=== PATIENT | female | born 1950 | race Caucasian/White ===

== ENCOUNTER 2016-05-26 16:49 | Observation (INO) | payer MEDICARE ==
[2016-05-26] MEDS ORDERED: ACETAMINOPHEN IV (For NPO) 1,000 MG in SALINE 100 100ML.BAG IVPB STA (17:43)
--- NOTE | 2016-05-26 17:43 | ED ---
General Adult HPI - General Chief complaint: Syncope Stated complaint: TRANSFER FROM [facility] Time Seen by Provider: 05/26/16 17:00 Source: patient, RN notes reviewed Mode of arrival: EMS Limitations: no limitations - History of Present Illness Initial comments: This is a 65-year-old female comes from [facility] after being evaluated there. Patient states she thinks she had a seizure last night and her nephew found this morning confused any prodromal [facility]. I received a phone call from [facility] physician states that she had a negative CAT scan of the head and neck negative laboratory workup as well as a negative troponin 2 and that the patient currently was neurologically intact and had no complaints. I spoke with the patient now she only complaint of a mild headache and she states her symptoms were very indicative of her previous seizures. Patient states she normally has a train coming and then has a seizure she states that did happen prior to this event. Patient denies any recent fever or chills. Patient states she has a mild headache. Patient denies any neck pain. Patient denies any numbness or weakness. Patient denies chest pain palpitations difficulty breathing or shortness of breath. Patient denies any recent cough. Patient denies abdominal pain patient denies nausea vomiting or diarrhea. - Related Data Home Medications Medication Instructions Recorded Confirmed Atenolol [Tenormin] 25 mg PO BID 11/13/13 11/13/13 Fluticasone/Salmeterol [Advair 1 puff BID 11/13/13 11/13/13 250-50 Diskus] Ipratropium/Albuterol Sulfate 1 puff INHALATION QID 11/13/13 11/13/13 [Combivent Respimat Inhaler] Ipratropium/Albuterol Sulfate 3 ml INHALATION QID 11/13/13 11/13/13 [Duoneb 0.5 mg-3 mg/3 ml Soln] Lisinopril [Zestril] 10 mg PO BID 11/13/13 11/13/13 Lovastatin 40 mg PO HS 11/13/13 11/13/13 Oxybutynin Chloride [Ditropan] 5 mg PO BID 11/13/13 11/13/13 Sertraline [Zoloft] 100 mg PO DAILY 11/13/13 11/13/13 Previous Rx's Medication Instructions Recorded Aspirin EC [Ecotrin Low Dose] 81 mg PO DAILY #1 tablet.dr 11/17/13 Isosorbide Mononitrate ER [Imdur] 30 mg PO DAILY #30 tab.er.24h 11/17/13 Levofloxacin [Levaquin] 750 mg PO DAILY #7 tab 11/17/13 Nicotine 14Mg/24Hr Patch [Habitrol] 1 patch TRANSDERM DAILY #1 patch 11/17/13 Nitroglycerin Sl Tabs [Nitrostat] 0.4 mg SL Q5M PRN #25 tab 11/17/13 predniSONE 10 mg PO DIRECTED #33 tab 11/17/13 Allergies Allergy/AdvReac Type Severity Reaction Status Date / Time No Known Allergies Allergy Verified 05/26/16 17:03 Review of Systems ROS Statement: Those systems with pertinent positive or pertinent negative responses have been documented in the HPI. ROS Other: All systems not noted in ROS Statement are negative. Past Medical History Past Medical History: Heart Failure, COPD, GERD/Reflux, Hyperlipidemia, Hypertension, Pulmonary Embolus (PE) Additional Past Medical History / Comment(s): Syncope and collapse requiring CPR intubation and mechanical ventilation approximately 4 days in [place] ( December 2010) History of Any Multi-Drug Resistant Organisms: None Reported Past Surgical History: Heart Catheterization, Hysterectomy, Orthopedic Surgery Additional Past Surgical History / Comment(s): bilat knee repair, pins and screws in left foot. Past Anesthesia/Blood Transfusion Reactions: No Reported Reaction Past Psychological History: Anxiety, Depression Smoking Status: Current every day smoker Past Alcohol Use History: None Reported Past Drug Use History: None Reported General Exam - General Exam Comments Initial Comments: GENERAL: Patient is well-developed and well-nourished. Patient is nontoxic and well- hydrated and is in mild distress. ENT: Neck is soft and supple. No significant lymphadenopathy is noted. Oropharynx is clear. Moist mucous membranes. Neck has full range of motion without eliciting any pain. EYES: The sclera were anicteric and conjunctiva were pink and moist. Extraocular movements were intact and pupils were equal round and reactive to light. Eyelids were unremarkable. PULMONARY: Unlabored respirations. Good breath sounds bilaterally. No audible rales rhonchi or wheezing was noted. CARDIOVASCULAR: There is a regular rate and rhythm without any murmurs gallops or rubs. ABDOMEN: Soft and nontender with normal bowel sounds. No palpable organomegaly was noted. There is no palpable pulsatile mass. SKIN: Skin is clear with no lesions or rashes and otherwise unremarkable. NEUROLOGIC: Patient is alert and oriented x3. Cranial nerves II through XII are grossly intact. Motor and sensory are also intact. Normal speech, volume and content. Symmetrical smile. MUSCULOSKELETAL: Normal extremities with adequate strength and full range of motion. No lower extremity swelling or edema. No calf tenderness. LYMPHATICS: No significant lymphadenopathy is noted PSYCHIATRIC: Normal psychiatric evaluation. Limitations: no limitations Course Vital Signs 05/26/16 16:59 Temperature 98.2 F Pulse Rate 104 H Respiratory 18 Rate Blood Pressure 186/76 O2 Sat by Pulse 97 Oximetry Disposition Clinical Impression: Seizure Disposition: ADMITTED IP TO THIS HOSP Referrals: Adrien Martinez MD [Primary Care Provider] - 1-2 days Time of Disposition: 17:46
[2016-05-26] MEDS ORDERED: SODIUM CHLORIDE 0.9% 1,000 ML IV ONE (17:47)
[2016-05-26] MEDS ORDERED: levETIRAcetam IV 1,000 MG in SALINE 1 100ML.BAG IVPB STA (19:50)
[2016-05-26 20:30] LABS: Basophils % (A) 1 %; CHCM 30.4; Eosinophils # (A) 0.1 k/uL (0-0.7); Eosinophils % (A) 2 %; HCT 32.6 % (34.0-46.0); HDW 2.73; HGB 9.8 gm/dL (11.4-16.0); Hypochromasia Moderate; Luc # (Auto) 0.04; Luc % (Auto) 1; Lymphocytes % (A) 16 %; MCH 24.9 pg (25.0-35.0); MCHC 30.2 g/dL (31.0-37.0); MCV 82.5 fL (80.0-100.0); Mean Platelet Volume 8.4; Monocytes # (A) 0.2 k/uL (0-1.0); Monocytes % (A) 4 %; Neutrophils # (A) 4.5 k/uL (1.3-7.7); Neutrophils % (A) 77 %; RBC 3.95 m/uL (3.80-5.40); WBC 5.8 k/uL (3.8-10.6); WBC (Perox) 6.18
[2016-05-26 20:42] LABS: ALT 31 U/L (9-52); AST 40 U/L (14-36); Alkaline Phosphatase 88 U/L (38-126); Anion Gap 9 mmol/L; Blood Urea Nitrogen 15 mg/dL (7-17); Calcium 8.5 mg/dL (8.4-10.2); Carbon Dioxide 31 mmol/L (22-30); Chloride 102 mmol/L (98-107); Glucose 123 mg/dL (74-99); Non-African American GFR(MDRD) >60 (>60 ml/min/1.73 sqM); Potassium 3.3 mmol/L (3.5-5.1); Sodium 142 mmol/L (137-145); Total Bilirubin 1.1 mg/dL (0.2-1.3); Total Protein 6.6 g/dL (6.3-8.2)
[2016-05-26] MEDS ORDERED: CYCLOBENZAPRINE 10 MG TAB PO PRN (21:32)
[2016-05-26] MEDS: IPRATROPIUM-ALBUTEROL 3 ML NEB INHALATION SCH (22:05)
[2016-05-26] MEDS: ACETAMINOPHEN TAB 325 MG TAB PO PRN (22:56)
[2016-05-26] MEDS: ATORVASTATIN 10 MG TAB PO SCH (22:58)
[2016-05-26] MEDS: ATENOLOL 25 MG TAB PO SCH (22:59)
[2016-05-26] MEDS: OXYBUTYNIN CHLORIDE 5 MG TAB PO SCH (22:59)
[2016-05-26] MEDS: LISINOPRIL 10 MG TAB PO SCH (22:59)
[2016-05-27] MEDS: IPRATROPIUM-ALBUTEROL 3 ML NEB INHALATION SCH ×4 (07:39→19:35)
[2016-05-27] MEDS: SYMBICORT 80-4.5 MCG INHALER INHALATION PRN ×2 (07:39→19:35)
[2016-05-27] MEDS: OXYBUTYNIN CHLORIDE 5 MG TAB PO SCH ×2 (08:59→20:12)
[2016-05-27] MEDS: levETIRAcetam IV 750 MG in SODIUM CHLORIDE 0.9% 100 ML IVPB SCH ×2 (08:59→20:11)
[2016-05-27] MEDS: LISINOPRIL 10 MG TAB PO SCH ×2 (09:00→20:12)
[2016-05-27] MEDS: CALCIUM CARB-VIT D 500MG-200UN 1 EACH TAB PO SCH (09:00)
[2016-05-27] MEDS: SERTRALINE 100 MG TAB PO SCH (09:00)
[2016-05-27] MEDS: ASPIRIN 81 MG CHEW PO SCH (09:00)
[2016-05-27] MEDS: ATENOLOL 25 MG TAB PO SCH ×2 (09:01→20:12)
[2016-05-27] MEDS: FUROSEMIDE 20 MG TAB PO SCH (12:59)
--- NOTE | 2016-05-27 15:07 | CT ---
EXAMINATION TYPE: CT brain norman carmona DATE OF EXAM: 05/27/2016 2:47 PM COMPARISON: NONE HISTORY: Fall yesterday. Posterior and left frontal injury. CT DLP: 1843.00 mGycm Automated exposure control for dose reduction was used. TECHNIQUE: CT scan of the head and cervical spine are performed without contrast. FINDINGS: There is mild cerebral cortical atrophy. There is no mass effect nor midline shift. There is no sign of intracranial hemorrhage. The calvarium is intact. The cervical vertebra have fairly normal alignment. There is degenerative disc space narrowing at C5- 6 C6-7 with spurring of the endplates. Skull base is intact. Prevertebral soft tissues appear normal. IMPRESSION: Mild atrophy. No acute intracranial abnormality. Spondylotic changes in the lower cervical spine. No fracture seen.
--- NOTE | 2016-05-27 15:09 | P.CONS ---
History of Present Illness - Reason for Consult Consult date: 05/27/16 Seizure - Chief Complaint Seizure - History of Present Illness Is a pleasant 65-year-old female being evaluated by the neurology service for seizure. She was transferred from [facility]. She reportedly had a negative CAT scan of the head and normal laboratory workup before being transferred to the [facility] emergency room. On admission she complained of only a mild headache. She gives a history of seizures that started many years ago. She had not had a seizure in about 4 years according to her. During that time she has taken no antiepileptic medication. Last thing she remembers is sitting in her living room and experiencing an aura that is familiar to her, that being the sound of a train. The next she remembers was being awoken by her nephew. She was lying on the floor and had experienced bladder and bowel incontinence. She still complains of a mild headache and occipital and cervical tenderness. She denies any recurrent aura or seizure activity since admission. She was given a loading dose of Keppra which she tolerated well. She cannot remember what antiepileptic medication she was on previously. Her daughter is at bedside and says that she is back to her baseline neurologically. Review of Systems All systems: negative Past Medical History Past Medical History: Heart Failure, COPD, GERD/Reflux, Hyperlipidemia, Hypertension, Osteoarthritis (OA), Pulmonary Embolus (PE), Seizure Disorder Additional Past Medical History / Comment(s): Syncope and collapse requiring CPR intubation and mechanical ventilation approximately 4 days in [place] ( December 2010), "ONLY HAVE 20% LUNG FUNCTION",HOME 02-4 LITERS N/C ATC,CATARACTS, OCC INCONT OF URINE,OSTEOPENIA, "ARRYTHMIA" History of Any Multi-Drug Resistant Organisms: None Reported Past Surgical History: Heart Catheterization, Hysterectomy, Orthopedic Surgery, Tubal Ligation Additional Past Surgical History / Comment(s): bilat knee replacement, pins and screws in left foot. bunionectomy, hammer toe sx, Past Anesthesia/Blood Transfusion Reactions: No Reported Reaction Additional Past Anesthesia/Blood Transfusion Reaction / Comm: blood transfusion- no reactions Past Psychological History: Anxiety, Depression Smoking Status: Former smoker Past Alcohol Use History: None Reported Additional Past Alcohol Use History / Comment(s): started smoking at age 16 smoked less than 1 ppd, 1quit -2015 Past Drug Use History: None Reported - Past Family History Father Family Medical History: Unable to Obtain Mother Family Medical History: Cancer Brother(s) Family Medical History: Cancer Medications and Allergies Home Medications Medication Instructions Recorded Confirmed Type Atenolol [Tenormin] 25 mg PO BID 11/13/13 05/26/16 History Fluticasone/Salmeterol [Advair 1 puff INHALATION RT-BID 11/13/13 05/26/16 History 250-50 Diskus] Ipratropium/Albuterol Sulfate 1 puff INHALATION RT-QID 11/13/13 05/26/16 History [Combivent Respimat Inhaler] Ipratropium/Albuterol Sulfate 3 ml INHALATION RT-QID 11/13/13 05/26/16 History [Duoneb 0.5 mg-3 mg/3 ml Soln] Lisinopril [Zestril] 10 mg PO BID 11/13/13 05/26/16 History Sertraline [Zoloft] 100 mg PO DAILY 11/13/13 05/26/16 History Calcium Carbonate/Vitamin D3 1 tab PO DAILY 05/26/16 05/26/16 History [Calcium 600-Vit D3 800 Tab] Cyclobenzaprine [Flexeril] 10 mg PO TID PRN 05/26/16 05/26/16 History Furosemide [Lasix] 20 mg PO DAILY 05/26/16 05/26/16 History Ibuprofen [Motrin] 800 mg PO TID PRN 05/26/16 05/26/16 History Lovastatin [Mevacor] 40 mg PO HS 05/26/16 05/26/16 History Nitroglycerin Sl Tabs [Nitrostat] 0.4 mg SUBLINGUAL Q5M PRN 05/26/16 05/26/16 History Oxybutynin Chloride [Ditropan] 5 mg PO BID 05/26/16 05/26/16 History Allergies Allergy/AdvReac Type Severity Reaction Status Date / Time codeine Allergy Rash/Hives Verified 05/26/16 18:23 Physical Exam Vitals: Vital Signs Temp Pulse Pulse Resp BP BP Pulse Ox 05/27/16 12:00 70 18 05/27/16 11:52 97.3 F L 70 18 141/66 96 05/27/16 11:42 72 05/27/16 11:36 72 05/27/16 08:00 98.2 F 68 16 107/48 98 05/27/16 07:49 76 05/27/16 07:45 68 05/27/16 04:00 97.9 F 72 18 133/61 97 05/27/16 00:00 61 18 05/26/16 23:26 103 H 18 169/74 95 05/26/16 22:14 101 H 05/26/16 22:05 112 H 05/26/16 18:57 98.1 F 107 H 18 170/76 05/26/16 18:21 97.4 F L 108 H 18 162/71 99 Intake and Output 05/26/16 05/27/16 05/27/16 22:59 06:59 14:59 Intake Total 200 Balance 200 Intake: Oral 200 Other: # Voids 2 1 Weight 77.9 kg - Constitutional General appearance: average body habitus, no acute distress - EENT Eyes: no abnormal pupil, EOMI, PERRLA, no ptosis ENT: hard of hearing - Neck Mild posterior cervical tenderness Neck: normal ROM, no rigidity - Respiratory Respiratory: negative: prolonged expiration, prolonged inspiration - Cardiovascular Rhythm: regular - Gastrointestinal General gastrointestinal: no distended, no tenderness - Neurologic Patient is alert awake and oriented 3. Speech and language are normal. Strength is 5 minus out of 5 in bilateral upper and lower extremities. There is no sensory deficit in the upper lower extremities. Cranial nerves II through XII are intact globally. No tremors or seizure-like activities are seen. There is some tenderness in the right occipital area. No crepitus is felt. - Psychiatric Psychiatric: appropriate affect Results CBC & Chem 7: 05/26/16 20:07 05/27/16 12:01 Labs: Abnormal Lab Results - Last 24 Hours (Table) 05/26/16 05/26/16 Range/Units 20:07 20:07 Hgb 9.8 L (11.4-16.0) gm/dL Hct 32.6 L (34.0-46.0) % MCH 24.9 L (25.0-35.0) pg MCHC 30.2 L (31.0-37.0) g/dL Potassium 3.3 L (3.5-5.1) mmol/L Carbon Dioxide 31 H (22-30) mmol/L Glucose 123 H (74-99) mg/dL AST 40 H (14-36) U/L Assessment and Plan (1) Head contusion Status: Acute (2) Cervical strain Status: Acute (3) Seizure Status: Chronic (4) Syncope and collapse Status: Acute (5) COPD (chronic obstructive pulmonary disease) Status: Acute (6) HTN (hypertension) Status: Acute Plan: As she does seem to recall an aura which is consistent with her previous seizure activity, she has not had a seizure in quite a while. I will update a CT of the brain as well as a CT of the cervical spine. I will order an EEG and a carotid Doppler. Continue IV Keppra for now we will likely be transitioning her to oral Keppra at 500 mg twice a day. Continue seizure precautions and neuro checks. We will continue to follow her progress. I reviewed the history and physical on the above patient. I have reviewed the above note, and agree.
--- NOTE | 2016-05-27 16:17 | US ---
EXAMINATION TYPE: US carotid duplex BILAT DATE OF EXAM: 05/27/2016 3:07 PM COMPARISON: NONE CLINICAL HISTORY: syncope. EXAM MEASUREMENTS: RIGHT: Peak Systolic Velocity (PSV) cm/sec ----- Right CCA: 86.7 ----- Right ICA: 91.2 ----- Right ECA: 12.9 ICA/CCA ratio: 1.1 RIGHT: End Diastole cm/sec ----- Right CCA: 27.4 ----- Right ICA: 26.4 ----- Right ECA: 11.4 LEFT: Peak Systolic Velocity (PSV) cm/sec ----- Left CCA: 69.8 ----- Left ICA: 108.1 ----- Left ECA: 175.3 ICA/CCA ratio: 1.5 LEFT: End Diastole cm/sec ----- Left CCA: 16.7 ----- Left ICA: 30.5 ----- Left ECA: 19.2 VERTEBRALS (direction of flow): Right Vertebral: Antegrade Left Vertebral: Antegrade TECHNOLOGIST IMPRESSION: Patient is short of breath and it is difficult to get images and waveforms without breathing motion. No significant stenosis ICA bilaterally. Moderate plaque Right bulb, ica and eca. Intimal thickening right CCA. Slightly elevated velocity right ECA. Moderate plaque at left CCA mid, bulb and proximal ICA. The ICA is quite tortuous. Elevated left E CA velocity. IMPRESSION: The images and measurements suggest 30-40% stenosis in both internal carotid arteries. T here is antegrade flow in the vertebral arteries. Criteria for Assigning % of Stenosis / Diameter reduction (Estimation based on the indirect measurements of the internal carotid artery velocities (ICA PSV). 1. Normal (no stenosis)=ICA PSV < 125 cm/s: ratio < 2.0: ICA EDV<40 cm/s. 2. Less than 50% stenosis=ICA PSV < 125 cm/s: ratio < 2.0: ICA EDV<40 cm/s. 3. 50 to 69% stenosis=ICA PSV of 125 to 230 cm/s: ration 2.0 ? 4.0: ICA EDV 40-100 cm/s. 4. Greater than 70% stenosis to near occlusion= ICA PSV > 230 cm/s: ratio > 4.0: ICA EDV > 100 cm/s. 5. Near occlusion= ICA PSV velocities may be low or undetectable: variable ratio and ICA EDV. 6. Total occlusion=unable to detect flow.
[2016-05-27] MEDS: ATORVASTATIN 10 MG TAB PO SCH (20:11)
[2016-05-28] MEDS: FUROSEMIDE 20 MG TAB PO SCH (08:28)
[2016-05-28] MEDS: OXYBUTYNIN CHLORIDE 5 MG TAB PO SCH ×2 (08:28→22:07)
[2016-05-28] MEDS: LISINOPRIL 10 MG TAB PO SCH ×2 (08:28→22:08)
[2016-05-28] MEDS: ATENOLOL 25 MG TAB PO SCH ×2 (08:29→22:08)
[2016-05-28] MEDS: ASPIRIN 81 MG CHEW PO SCH (08:29)
[2016-05-28] MEDS: SERTRALINE 100 MG TAB PO SCH (08:29)
[2016-05-28] MEDS: CALCIUM CARB-VIT D 500MG-200UN 1 EACH TAB PO SCH (08:29)
[2016-05-28] MEDS: levETIRAcetam IV 750 MG in SODIUM CHLORIDE 0.9% 100 ML IVPB SCH ×2 (08:49→22:08)
[2016-05-28] MEDS: IPRATROPIUM-ALBUTEROL 3 ML NEB INHALATION SCH ×4 (09:21→20:29)
[2016-05-28] MEDS: SYMBICORT 80-4.5 MCG INHALER INHALATION PRN ×2 (09:21→20:29)
--- NOTE | 2016-05-28 13:23 | P.PN ---
Subjective Principal diagnosis: Seizure This is 65-year-old female continuing be evaluated by the neurology service for seizure disorder. Recall that she had been seizure-free for quite some time and off any antiepileptic medication until this occurrence. She has been on IV Keppra since admission with no further seizure activity. Although not witnesses she did suffer a fall and does have persistent neck and head pain. CT of the brain and cervical spine were unremarkable. A carotid Doppler showed 30-40% stenosis bilaterally. At the time of my evaluation she is resting comfortably in her bed. Objective - Vital Signs Vital signs: Vital Signs Temp 98 F 05/28/16 11:17 Pulse 80 05/28/16 13:09 Resp 18 05/28/16 11:17 BP 119/47 05/28/16 11:17 Pulse Ox 94 L 05/28/16 11:17 Intake & Output 05/27/16 05/28/16 05/28/16 18:59 06:59 18:59 Intake Total 318 236 Balance 318 236 Intake: Oral 318 236 Other: Voiding Method Toilet # Voids 1 1 - Constitutional General appearance: Present: no acute distress. Absent: average body habitus - EENT Eyes: Present: EOMI, PERRLA. Absent: abnormal pupil, ptosis ENT: Present: hearing grossly normal - Neck Neck: Present: normal ROM. Absent: rigidity - Respiratory Respiratory: negative: prolonged expiration, prolonged inspiration - Gastrointestinal General gastrointestinal: Absent: distended, tenderness - Neurologic Neurologic Comment(s): Patient is alert awake and oriented 3. Speech-language are normal. There is no facial asymmetry. There is no lateralizing weakness. There is no sensory deficit. No tremors or seizure-like activities are seen. - Labs CBC & Chem 7: 05/26/16 20:07 05/27/16 12:01 Assessment and Plan (1) Head contusion Status: Acute (2) Cervical strain Status: Acute (3) Seizure Status: Chronic (4) Syncope and collapse Status: Acute (5) COPD (chronic obstructive pulmonary disease) Status: Acute (6) HTN (hypertension) Status: Acute Plan: She has had no further seizure activity since her admission. We will switch her IV Keppra to oral Keppra at 500 mg twice a day. Continue seizure precautions and neuro checks. Barring any unforeseen abnormalities on her EEG she is cleared from a neurological standpoint. I reviewed the history and physical on the above patient. I have reviewed the above note, and agree.
[2016-05-28] MEDS: ACETAMINOPHEN TAB 325 MG TAB PO PRN (13:25)
--- NOTE | 2016-05-28 13:29 | HP ---
DATE OF ADMISSION: 05/26/2016 CHIEF COMPLAINT: Seizures. HISTORY OF PRESENT ILLNESS: Ms. Dixon is a 65-year-old female with known history of severe chronic obstructive pulmonary disease, on home oxygen, history of congestive heart failure, GERD, hypertension, hyperlipidemia, previous history of seizures about 4 years ago and was initially brought to the hospital was initially presented to [facility] after having a seizure episode. Apparently, patient was sitting in her living room pain and explains an aura that is ( ) to her. That being the sound of a train. Next, ( ) was awakened by her nephew. She was lying on the floor and had bowel and bladder incontinence. Otherwise, the patient denied any headache or dizziness, lightheadedness. No chest pain or short of breath. The patient was transferred to [facility] from [facility]. Patient had a CAT scan of the head at [facility] and patient had a mild headache which is improved now. Otherwise, neurology has seen the patient. EEG was ordered. Currently denied any complaints. The patient denied any complaints of recent fever or chills. No nausea or vomiting, abdominal pain. No recent illnesses or sick contacts at home. REVIEW OF SYSTEMS: CONSTITUTIONAL: No fever. No chills. RESPIRATORY: No cough or sputum production. CARDIOVASCULAR: No chest pain or short of breath. ABDOMEN: No nausea or vomiting, abdominal pain. No diarrhea. No constipation. GENITOURINARY: Negative. ENDOCRINE: Negative. PSYCHIATRIC: Negative. All other 14 point review of systems negative except as above. Past medical history include: congestive heart failure unknown ejection fraction, COPD on home oxygen, GERD, hypertension, hyperlipidemia, osteoarthritis, pulmonary embolism, ( ) history and seizure disorder history, osteopenia. PAST SURGICAL HISTORY: Cardiac catheterization, hysterectomy, orthopedic surgery, tubal ligation, bilateral knee replacement, pins and screws in the left foot, bunionectomy, hammertoe surgery. PSYCHOSOCIAL HISTORY: Anxiety and depression. SOCIAL HISTORY: Patient is a former smoker, started smoking at age 16 and a smoker less than 1 pack per day; quit in ( ) 2015. FAMILY HISTORY: Father had ( ) mother had cancer. Brother had cancer. Home medications include: 1. Atenolol. 2. Advair. 3. Ipratropium. 4. Zestril. 5. Zoloft. 6. Calcium carbonate. 7. Flexeril. 8. Lasix. 9. Motrin. 10. Lovastatin. 11. Nystatin. 12. Nitroglycerin sublingual tabs. 13. Oxybutynin. ALLERGIES CODEINE. PHYSICAL EXAMINATION: A 65 -year-old female lying in bed comfortably, alert and oriented times three, appears to be in no apparent distress. VITALS: Blood pressure is 121/52, pulse is 78, respiratory rate 20, temperature afebrile, pulse ox 99% on 4 L nasal cannula. HEENT: Atraumatic, normocephalic. Neck is supple. No JVD. CVS: S1, S2 heard. No murmurs, no gallop, no rub. LUNGS: Bilateral air entry is present. No wheezing. No crackles. Increased breath sounds throughout. Nonlabored breathing. ABDOMEN: Soft, nontender. Bowel sounds present. REPAIR SERVICE DISPATCHER: Awake, alert and oriented times three. No focal deficits. Cranial nerves grossly intact. EXTREMITIES: No edema. Pulses palpable bilaterally. No clubbing. No cyanosis. PSYCHIATRIC: Cooperative. Nonsuicidal. SKIN: No rash or skin lesions. LABORATORY DATA: WBC 5.8, hemoglobin 9.8, platelets 185, sodium 142, potassium 3.3, chloride 102, bicarb is 31, BUN 15, creatinine 0.8, blood sugar is 123, AST 40, ALT is 31, alk phos 88, ( ) 3.5. CT cervical spine mild atrophy. No acute intracranial abnormality, spondylitis changes in the lower cervical spine. No fracture is seen. Carotid Doppler ( ) measurement suggests 30 to 40% stenosis in both internal carotid arteries. There is antegrade flow in the ( ) arteries. IMPRESSION: 1. Acute seizure activity with aura and loss of bowel or bladder incontinence. 2. Head contusion and cervical strain status post seizure activity. 3. Chronic obstructive pulmonary disease on home oxygen. 4. Hypertension. 5. Hyperlipidemia. 6. Gastroesophageal reflux disease. 7. History of congestive heart failure, unknown ejection fraction. 8. History of pulmonary embolism. 9. Degenerative joint disease. 10. Previous history of syncope and collapse requiring CPR and intubation in 2010. DISCUSSION AND PLAN: A 65 -year-old female admitted to the hospital with seizure activity, neurology has seen the patient and EEG was ordered. The patient will be continued on Keppra at this time. Neurology is following this patient. Further recommendations based on clinical course. CT head and CT cervical spine, showed no acute abnormality or fracture-dislocation and carotid ultrasound did not show any significant stenosis. Will continue current management. Continue seizure precautions. Continue home medications and further recommendations based on clinical course.
[2016-05-28] MEDS: ATORVASTATIN 10 MG TAB PO SCH (22:08)
[2016-05-29] MEDS: ACETAMINOPHEN TAB 325 MG TAB PO PRN (01:12)
[2016-05-29] MEDS: SYMBICORT 80-4.5 MCG INHALER INHALATION PRN (07:15)
[2016-05-29] MEDS: IPRATROPIUM-ALBUTEROL 3 ML NEB INHALATION SCH ×3 (07:15→15:54)
[2016-05-29 07:39] LABS: Appearance,Urine Cloudy (Clear); Bacteria,Urine Many /hpf; Bilirubin,Urine Negative (Negative); Glucose,Urine (UA) Negative (Negative); Ketones,Urine Negative (Negative); Leukocyte Esterase,Urine Large (Negative); Mucus,Urine Few /hpf; Nitrite,Urine Positive (Negative); Particle Count 31009; Protein,Urine Negative (Negative); RBC,Urine 1 /hpf (0-5); Specific Gravity,Urine 1.013 (1.001-1.035); Squamous Epithelial Cell,Urine 2 /hpf (0-4); UA Billing (MACRO vs. MICRO) MICRO; Urobilinogen,Urine <2.0 mg/dL (<2.0); WBC,Urine 17 /hpf (0-5)
[2016-05-29 08:10] VITALS: RESP 20
[2016-05-29] MEDS: ATENOLOL 25 MG TAB PO SCH (10:39)
[2016-05-29] MEDS: FUROSEMIDE 20 MG TAB PO SCH (10:39)
[2016-05-29] MEDS: CALCIUM CARB-VIT D 500MG-200UN 1 EACH TAB PO SCH (10:39)
[2016-05-29] MEDS: OXYBUTYNIN CHLORIDE 5 MG TAB PO SCH (10:40)
[2016-05-29] MEDS: SERTRALINE 100 MG TAB PO SCH (10:40)
[2016-05-29] MEDS: LISINOPRIL 10 MG TAB PO SCH (10:40)
[2016-05-29] MEDS: ASPIRIN 81 MG CHEW PO SCH (10:40)
[2016-05-29 11:54] VITALS: BP 121/61; TEMP 98
[2016-05-29] MEDS ORDERED: levETIRAcetam 500 MG TAB PO SCH (12:00)
[2016-05-29] MEDS: levETIRAcetam IV 750 MG in SODIUM CHLORIDE 0.9% 100 ML IVPB SCH (12:04)
[2016-05-29 15:58] VITALS: PULSE 78
--- NOTE | 2016-05-30 12:59 | PN ---
DATE OF SERVICE: 05/28/2016 INTERVAL HISTORY: Ms. Dixon is a 65-year-old female with severe chronic obstructive pulmonary disease and multiple other medical problems, was admitted to the hospital with a seizure activity with loss of bowel and bladder control. Patient had and EEG done, awaiting report at this time. Otherwise, patient was started on Keppra, Neurology is following this patient. Patient still feels weak and otherwise, denied any complaints of headaches, dizziness, lightheadedness. No fever. No chills. No acute overnight issues. Awaiting final neurology clearance. REVIEW OF SYSTEMS: CONSTITUTIONAL: No fever. No chills. RESPIRATORY: No cough or sputum production. CARDIOVASCULAR: No chest pain or short of breath. ABDOMEN: No nausea, abdominal pain, vomiting. GENITOURINARY: Negative. ENDOCRINE: Negative. PSYCHIATRY: Negative. SKIN: Negative. All other 14-point review of systems negative except as above. CURRENT MEDICATIONS: Reviewed. PHYSICAL EXAMINATION: The patient is a 65-year-old female, lying in the bed. Awake, alert, oriented x3. Patient in no apparent distress. VITALS: Blood pressure is 135/71, pulse is 74, respirations 20, temperature afebrile, pulse ox 98% on 4 L nasal cannula. HEENT: Atraumatic, normocephalic. Neck is supple. No JVD. CVS EXAM: S1, S2 heard. No murmurs or gallop. LUNGS: Bilateral air entry present. No wheezing. No crackle.. ABDOMEN: Soft, nontender. Bowel sounds present. TAPE EDITOR: Alert and oriented x3. No focal neurologic deficit. Cranial nerves are grossly intact. EXTREMITIES: No edema. Pulses palpable bilaterally. No clubbing or cyanosis. PSYCHIATRIC: Cooperative. LABORATORY DATA: Reviewed. IMPRESSION: 1. Acute seizure activity with aura and loss of bowel and bladder control, started on Keppra. 2. Head contusion and cervical strain status post seizure activity. 3. Chronic obstructive pulmonary disease on home oxygen. 4. Hypertension. 5. Hyperlipidemia. 6. Gastroesophageal reflux disease. 7. History of congestive heart failure with unknown ejection fraction. 8. History of pulmonary embolism. 9. Degenerative joint disease. 10. Previous history of syncope and collapse requiring CPR and intubation in 2010. DISCUSSION AND PLAN: A 65-year-old female admitted to the hospital with seizure activity. Neurology is following this patient, started on Keppra now. EEG report is pending. Otherwise, patient underwent CT head and cervical spine showed no acute abnormality or fracture or dislocation and carotid ultrasound did not reveal any significant stenosis. Will continue with the current management and follow closely. Further recommendations to follow depending on the patient.
--- NOTE | 2016-05-30 22:58 | DS ---
DATE OF ADMISSION: 05/26/2016 DATE OF DISCHARGE: 05/29/2016 DISCHARGE DIAGNOSES: 1. Acute seizure activity, started on back on Keppra dose. 2. Chronic seizures. 3. Head contusion and cervical strain from seizure activity. 4. Chronic obstructive pulmonary disease, on home oxygen. 5. Hypertension. 6. Hyperlipidemia. 7. Gastroesophageal reflux disease. 8. History of congestive heart failure; unknown ejection fraction. 9. History of pulmonary embolism. 10. Degenerative joint disease. 11. Previous history of syncope and collapse requiring cardiopulmonary resuscitation and intubation in 2010. HOSPITAL COURSE: Ms. Dixon is a 65-year-old female who was admitted to the hospital after seizure activity and a fall. Patient had an EEG done. She had a workup, including CT head, carotid duplex and EEG as well as CT of cervical spine that showed no acute fracture-dislocation. Patient was monitored in the hospital for any further seizure activity. No seizure activity noted in the hospital. Patient otherwise was continued on Keppra dose at home. Patient is clinically much improved now. UA was done for possible urinary tract infection. Otherwise, patient is asymptomatic; denied any dysuria. No fever. No chills. No leukocytosis. Urine culture will be monitored. Patient was advised to follow up with her primary care physician for final urine culture report. Otherwise, patient is clinically stable for discharge home. DISCHARGE PHYSICAL EXAMINATION: A 65-year-old female lying in bed comfortably. Awake, alert, oriented x3. No apparent distress. VITALS: Blood pressure is 121/61, pulse 82, respiration 20, temperature afebrile, pulse ox 99% on 4 L nasal cannula. LABORATORY DATA: Reviewed. Discharge physical examination done. Discharge medications include: 1. Atenolol 25 mg p.o. b.i.d. 2. Advair 1 puff b.i.d. 3. Ipratropium, albuterol inhalation q.i.d. p.r.n. for shortness of breath. 4. Zestril 10 mg p.o. b.i.d. 5. Zoloft 100 mg p.o. daily. 6. Aspirin 81 mg p.o. daily. 7. Calcium with vitamin D3 one tablet p.o. daily. 8. Flexeril 10 mg p.o. t.i.d. p.r.n. for spasms. 9. Lasix 20 mg p.o. daily. 10. Ibuprofen 800 mg p.o. t.i.d. p.r.n. for pain. 11. Lovastatin 40 mg at bedtime. 12. Nitroglycerin 0.4 mg sublingually q.5 minutes p.r.n. for chest pain. 13. Oxybutynin 5 mg p.o. b.i.d. 14. Keppra 500 mg p.o. q.12 hours. Patient advised to follow with primary care physician in 1 to 2 days, Dr. Adrien Martinez. Follow with primary care physician for the final urine culture reports. Follow up with Dr. Huitron in 4 weeks. Home with self-care. Activity as tolerated. Heart-healthy diet.
--- NOTE | 2016-06-03 14:31 | EEG ---
DATE OF SERVICE: 05/29/2016 INDICATIONS FOR EXAMINATION: Seizure AGE: 65Y DESCRIPTION OF PROCEDURE: This EEG was performed using a 21 channel digital electroencephalograph, following international 10-20 system. DESCRIPTION OF THE RECORDING: From the beginning of the tracing, with the patient's eyes closed, the background rhythm was mostly consisting of 9 Hz alpha frequency in the posterior occipital leads. No obvious asymmetry is seen. Occasional movement artifacts and lead artifacts were seen. Photic stimulation was performed with minimal driving response seen. No pathological waves were elicited. Hyperventilation was not performed. The patient does reach Stage II of sleep during the tracing and occasional sleep spindles are seen. No epileptiform discharges were seen throughout the tracing. INTERPRETATION: This asleep and awake EEG can be considered within normal limits. There was no asymmetry seen. No epileptiform discharges were noticed. The absence of epileptiform discharges does not rule out the diagnosis of epilepsy. Therefore, clinical correlation is recommended.
== END 2016-05-29 16:30 | disposition home or self-care (01) ==
LOC: EC 16:49 → 3OBS 17:47
PROVIDERS: ADMIT Hospitalist; ATTEND Hospitalist
DX: G40.909 Epilepsy, unspecified, not intractable, without status epilepticus (principal); S00.93XA Contusion of unspecified part of head, initial encounter; S16.1XXA Strain of muscle, fascia and tendon at neck level, initial encounter; E78.5 Hyperlipidemia, unspecified; F17.200 Nicotine dependence, unspecified, uncomplicated; F32.9 Major depressive disorder, single episode, unspecified; F41.9 Anxiety disorder, unspecified; I10 Essential (primary) hypertension; I50.9 Heart failure, unspecified; J44.9 Chronic obstructive pulmonary disease, unspecified; K21.9 Gastro-esophageal reflux disease without esophagitis; M19.90 Unspecified osteoarthritis, unspecified site; M85.80 Other specified disorders of bone density and structure, unspecified site; Z79.82 Long term (current) use of aspirin; R32 Unspecified urinary incontinence; Z86.711 Personal history of pulmonary embolism; Z88.5 Allergy status to narcotic agent; Z96.653 Presence of artificial knee joint, bilateral; Z99.81 Dependence on supplemental oxygen; Z79.899 Other long term (current) drug therapy; Z79.52 Long term (current) use of systemic steroids; W19.XXXA Unspecified fall, initial encounter; Y92.008 Other place in unspecified non-institutional (private) residence as the place of occurrence of the external cause
CPT/HCPCS: 99285; 94640 ×7; 94760 ×2; 95819; 80053; 84132; 84484; 85025; 85730; 81001; 87086; 87077; 87186; 93880; 72125; 70450; G0378 ×4; J1953 ×3; J0131; 96361; 96365; 96375; 96376

== ENCOUNTER → 2016-08-07 | Outpatient (CLI) | payer MEDICARE ==
[2016-08-07 16:49] LABS: Blood Urea Nitrogen 25 mg/dL (7-17); Non-African American GFR(MDRD) 55 (>60 ml/min/1.73 sqM)
--- NOTE | 2016-08-07 17:47 | MR ---
EXAMINATION TYPE: MR brain wo/w con DATE OF EXAM: 08/07/2016 5:31 PM COMPARISON: CT brain May 27, 2016 HISTORY: Seizure and memory loss per order. Additional symptoms of bilateral hearing loss per patient . TECHNIQUE: Multiplanar, multisequence images of the brain and brainstem is performed without and with IV contras t, utilizing 15 mL intravenous MultiHance . FINDINGS: Diffusion weighted images demonstrate no evidence of a recent infarct or other diffusion ab normality. There is no worrisome extra-axial fluid collection. There is ventricular and sulcal promi nence consistent with mild diffuse age-related cerebral atrophy. There are focal and confluent areas of T2 hyperintensity seen in the periventricular white matter. Lesions are nonspecific in appearance and distribution are most likely on basis of product of chronic small vessel ischemic change in patie nt this age. Exam is slightly suboptimal as trauma protocol was not performed. T2 coronal weighted im ages show hippocampal gyri to appear symmetric and felt within normal limits. Midline structures demonstrate normal morphology. The craniocervical junction appears within normal limits. Post contrast images demonstrate no abnormal enhancement. The dural venous sinuses appear pa tent. The visualized sinuses are clear and the globes are intact. IMPRESSION: There is mild diffuse age-related cerebral atrophy and fairly moderate periventricular ch ronic small vessel ischemic change noted.
== END | disposition home or self-care (01) ==
LOC: RADMRIMAIN 16:24
PROVIDERS: ATTEND Psychiatry & Neurology Pain Medicine
DX: G40.909 Epilepsy, unspecified, not intractable, without status epilepticus (principal); R41.3 Other amnesia; Z88.5 Allergy status to narcotic agent
CPT/HCPCS: 82565; 84520; 70553; A9577

== ENCOUNTER → 2016-08-18 | Outpatient (CLI) | payer MEDICARE ==
[2016-08-18 10:20] LABS: CH 25.4; CHCM 30.9; HDW 2.84; HGB 9.3 gm/dL (11.4-16.0); Hypochromasia Moderate; MCH 25.5 pg (25.0-35.0); MCV 82.1 fL (80.0-100.0); Mean Platelet Volume 7.4; RBC 3.65 m/uL (3.80-5.40); RDW 14.1 % (11.5-15.5); WBC 4.4 k/uL (3.8-10.6)
[2016-08-18 11:31] LABS: ALT 21 U/L (9-52); AST 23 U/L (14-36); Alkaline Phosphatase 102 U/L (38-126); Anion Gap 9 mmol/L; Blood Urea Nitrogen 19 mg/dL (7-17); Calcium 9.2 mg/dL (8.4-10.2); Carbon Dioxide 33 mmol/L (22-30); Chloride 101 mmol/L (98-107); Glucose 91 mg/dL (74-99); Iron 60 ug/dL (37-170); Non-African American GFR(MDRD) >60 (>60 ml/min/1.73 sqM); Potassium 4.3 mmol/L (3.5-5.1); Sodium 143 mmol/L (137-145); Total Bilirubin 0.7 mg/dL (0.2-1.3); Total Protein 7.5 g/dL (6.3-8.2)
[2016-08-18 11:45] LABS: % Iron Saturation 23.6 % (20-50); Total Iron Binding Capacity 254 ug/dL (265-497)
[2016-08-18 12:27] LABS: Vitamin B12 550 pg/mL
--- NOTE | 2016-08-18 15:13 | NM ---
EXAMINATION TYPE: NM DatScan Brain SPECT DATE OF EXAM: 08/18/2016 3:01 PM COMPARISON: MRI brain August 07, 2016. HISTORY: Memory loss per order. TECHNIQUE: 10 drops of Lugol's solution was administered 1 hour prior to injection as a thyroid bloc karrie agent. After the administration of 4.5 mCi I-123 Ioflupane DaTscan. Images obtained [address] injection. SPECT images of the brain were acquired with axial and coronal reconstructions. FINDINGS: There is some balanced striatal loss to the caudate and putaminal nuclei in the striata. This appea naseem is consistent with the loss of the pre-synaptic dopaminergic terminals. Some asymmetry tilting on images is noted. IMPRESSION: This abnormal appearance is supportive of a clinical diagnosis of DLB, idiopathic PD, Parkinson?s dementia complex, or PS. Clinical correlation advised.
[2016-08-19 14:17] LABS: Levetiracetam (Keppra) 28.2 ug/mL (3.0-60.0)
== END | disposition home or self-care (01) ==
LOC: RADNMMAIN 09:38
PROVIDERS: ATTEND Psychiatry & Neurology Neurology
DX: R41.3 Other amnesia (principal); E55.9 Vitamin D deficiency, unspecified; R53.83 Other fatigue; R41.0 Disorientation, unspecified
CPT/HCPCS: 84207; 84439; 84481; 80053; 80177; 82607; 82728; 83540; 83550; 84443; 85027; 84466; 82306; 78607; 36415; A9584

== ENCOUNTER 2021-03-19 20:55 | Inpatient (IN) | payer MEDICARE, OTHER ==
[2021-03-19] MEDS ORDERED: ORPHENADRINE 30 MG/ML 2 ML VIAL IM STA (21:18)
[2021-03-19] MEDS ORDERED: MORPHINE SULFATE 2 MG/ML SYRINGE IM ONE (21:18)
[2021-03-19] MEDS ORDERED: SODIUM CHLORIDE 0.9% 1,000 ML IV ONE (21:33)
[2021-03-19] MEDS: HYDROmorphone 1 MG/ML 1 ML SYRINGE IVP STA ×2 (21:38→21:44)
--- NOTE | 2021-03-19 22:06 | XR ---
EXAMINATION TYPE: XR lumbar spine 2 or 3V DATE OF EXAM: 03/19/2021 COMPARISON: NONE HISTORY: Pain. Fall. TECHNIQUE: 3 views FINDINGS: There is slight lumbar dextroscoliosis. There is a first-degree L4-5 spondylolisthesis with disc space narrowing. There is slight depression of the superior endplate of L5 vertebra 10%. Fractu re is probably old. Sacroiliac joints are intact. IMPRESSION: There is degenerative first-degree L4-5 spondylolisthesis. Old mild compression fracture of L5. No definite acute fracture seen.
--- NOTE | 2021-03-19 22:08 | XR ---
EXAMINATION TYPE: XR Hip LT and AP Pelvis DATE OF EXAM: 03/19/2021 COMPARISON: NONE HISTORY: Fall. Pain 05/26/2016 TECHNIQUE: 3 views FINDINGS: There is impacted subcapital fracture left femur. The pelvic ring is intact. Sacroiliac jenny nts are intact. Acetabula appear intact. Sacroiliac joints appear normal. IMPRESSION: Acute impacted subcapital fracture left femur. There is approximate 2 cm of impaction.
[2021-03-19 22:21] LABS: Basophils % (A) 0 %; Eosinophils % (A) 0 %; HCT 35.1 % (34.0-46.0); HGB 11.2 gm/dL (11.4-16.0); Lymphocytes # (A) 0.7 k/uL (1.0-4.8); Lymphocytes % (A) 8 %; MCH 28.1 pg (25.0-35.0); MCHC 31.8 g/dL (31.0-37.0); MCV 88.5 fL (80.0-100.0); Monocytes # (A) 0.3 k/uL (0-1.0); Monocytes % (A) 4 %; Neutrophils # (A) 7.8 k/uL (1.3-7.7); Neutrophils % (A) 87 %; Platelet Count 163 k/uL (150-450); RBC 3.97 m/uL (3.80-5.40); RDW 13.6 % (11.5-15.5)
[2021-03-19] MEDS ORDERED: NALOXONE 0.4 MG/ML 1 ML VIAL IV PRN (22:33)
[2021-03-19 22:35] LABS: INR 0.9 (<1.2); Partial Thromboplastin Time 20.8 sec (22.0-30.0); Prothrombin Time 9.5 sec (9.0-12.0)
--- NOTE | 2021-03-19 22:39 | ED ---
Fall HPI - General Chief Complaint: Fall Stated Complaint: Fall Time Seen by Provider: 03/19/21 21:11 Source: patient, EMS, RN notes reviewed Mode of arrival: EMS - History of Present Illness Initial Comments: Patient is a 70-year-old female that presents emergency department status post fall down several stairs. She notes that she comes in complaining of left hip pain. She did appear to be in moderate amounts distress. She denied any other issues or complaints. She was otherwise well-appearing. She denied any numbness tingling down her left leg. She denied any chest pain first breath headache nausea vomiting diarrhea constipation fever fatigue chills. - Related Data Home Medications Medication Instructions Recorded Confirmed Lisinopril [Zestril] 10 mg PO BID 11/13/13 03/19/21 Sertraline [Zoloft] 100 mg PO DAILY 11/13/13 03/19/21 Oxybutynin Chloride [Ditropan] 5 mg PO BID 05/26/16 03/19/21 Albuterol Inhaler [Ventolin Hfa 2 puff INHALATION RT-Q4H PRN 03/19/21 03/19/21 Inhaler] Celecoxib [CeleBREX] 100 mg PO DAILY 03/19/21 03/19/21 LORazepam [Ativan] 0.5 mg PO Q6H PRN 03/19/21 03/19/21 Lovastatin [Mevacor] 40 mg PO DAILY 03/19/21 03/19/21 Metoprolol Tartrate [Lopressor] 25 mg PO BID 03/19/21 03/19/21 Morphine Sulfate [Morphine Sulfate 5 mg PO Q4H PRN 03/19/21 03/19/21 Oral Soln Conc (20 MG/ML)] predniSONE 5 mg PO DAILY 03/19/21 03/19/21 Previous Rx's Medication Instructions Recorded Aspirin EC [Ecotrin Low Dose] 81 mg PO DAILY #1 tablet. 11/17/13 Allergies Allergy/AdvReac Type Severity Reaction Status Date / Time codeine Allergy Rash/Hives Verified 03/19/21 22:18 Review of Systems ROS Statement: Those systems with pertinent positive or pertinent negative responses have been documented in the HPI. ROS Other: All systems not noted in ROS Statement are negative. Past Medical History Past Medical History: Heart Failure, COPD, GERD/Reflux, Hyperlipidemia, Hypertension, Osteoarthritis (OA), Pulmonary Embolus (PE), Seizure Disorder Additional Past Medical History / Comment(s): Syncope and collapse requiring CPR intubation and mechanical ventilation approximately 4 days in [place] (December 2010), "ONLY HAVE 20% LUNG FUNCTION",HOME 02-4 LITERS N/C ATC,CATARACTS, OCC INCONT OF URINE,OSTEOPENIA, "ARRYTHMIA" History of Any Multi-Drug Resistant Organisms: None Reported Past Surgical History: Heart Catheterization, Hysterectomy, Orthopedic Surgery, Tubal Ligation Additional Past Surgical History / Comment(s): bilat knee replacement, pins and screws in left foot. bunionectomy, hammer toe sx, Past Anesthesia/Blood Transfusion Reactions: No Reported Reaction Additional Past Anesthesia/Blood Transfusion Reaction / Comment(s): blood transfusion-no reactions Past Psychological History: Anxiety, Depression Smoking Status: Current every day smoker Past Alcohol Use History: None Reported Past Drug Use History: None Reported - Past Family History Father Family Medical History: Unable to Obtain Mother Family Medical History: Cancer Brother(s) Family Medical History: Cancer General Exam Limitations: altered mental status, physical limitation General appearance: alert, in no apparent distress Head exam: Present: atraumatic, normocephalic, normal inspection Eye exam: Present: normal appearance, PERRL, EOMI. Absent: scleral icterus, conjunctival injection, periorbital swelling ENT exam: Present: normal exam, mucous membranes moist Neck exam: Present: normal inspection Respiratory exam: Present: normal lung sounds bilaterally. Absent: respiratory distress, wheezes, rales, rhonchi, stridor Cardiovascular Exam: Present: regular rate, normal rhythm, normal heart sounds. Absent: systolic murmur, diastolic murmur, rubs, gallop, clicks Extremities exam: Present: normal inspection, full ROM, normal capillary refill, other (Left hip tenderness, no obvious shortening or internal/external rotation.). Absent: tenderness, pedal edema, joint swelling, calf tenderness Neurological exam: Present: alert, oriented X3 Psychiatric exam: Present: normal affect, normal mood Skin exam: Present: warm, dry, intact, normal color. Absent: rash Course Vital Signs 03/19/21 03/19/21 03/19/21 21:01 21:44 23:00 Temperature 98.3 F Pulse Rate 98 94 91 Respiratory 18 18 18 Rate Blood Pressure 133/84 161/81 159/60 O2 Sat by Pulse 94 L 93 L 98 Oximetry 03/20/21 00:58 Temperature Pulse Rate 83 Respiratory 18 Rate Blood Pressure 136/75 O2 Sat by Pulse 97 Oximetry Medical Decision Making - Medical Decision Making 70-year-old female fell down several stairs complete left hip pain. X-ray of the left hip and pelvis, basic labs, EKG, chest x-ray ordered. X-ray of the hip shows a left subcapital femur fracture with 2 cm impaction. X-ray lumbar spine negative for any acute fracture. Dr. Judith Cabrera was consulted and will set the admit. medicine will be on consult Case discussed with Dr. Joe - Lab Data Result diagrams: 03/19/21 21:42 03/19/21 21:42 Lab Results 03/19/21 03/19/21 03/19/21 Range/Units 21:42 21:42 21:42 WBC 9.0 (3.8-10.6) k/uL RBC 3.97 (3.80-5.40) m/uL Hgb 11.2 L (11.4-16.0) gm/dL Hct 35.1 (34.0-46.0) % MCV 88.5 (80.0-100.0) fL MCH 28.1 (25.0-35.0) pg MCHC 31.8 (31.0-37.0) g/dL RDW 13.6 (11.5-15.5) % Plt Count 163 (150-450) k/uL MPV 9.0 Neutrophils % 87 % Lymphocytes % 8 % Monocytes % 4 % Eosinophils % 0 % Basophils % 0 % Neutrophils # 7.8 H (1.3-7.7) k/uL Lymphocytes # 0.7 L (1.0-4.8) k/uL Monocytes # 0.3 (0-1.0) k/uL Eosinophils # 0.0 (0-0.7) k/uL Basophils # 0.0 (0-0.2) k/uL PT 9.5 (9.0-12.0) sec INR 0.9 (<1.2) APTT 20.8 L (22.0-30.0) sec Sodium 136 L (137-145) mmol/L Potassium 4.0 (3.5-5.1) mmol/L Chloride 92 L (98-107) mmol/L Carbon Dioxide 37 H (22-30) mmol/L Anion Gap 7 mmol/L BUN 22 H (7-17) mg/dL Creatinine 0.61 (0.52-1.04) mg/dL Est GFR (CKD-EPI)AfAm >90 (>60 ml/min/1.73 sqM) Est GFR (CKD-EPI)NonAf >90 (>60 ml/min/1.73 sqM) Glucose 131 H (74-99) mg/dL Calcium 9.3 (8.4-10.2) mg/dL Total Bilirubin 1.1 (0.2-1.3) mg/dL AST 39 H (14-36) U/L ALT 22 (4-34) U/L Alkaline Phosphatase 71 (38-126) U/L Total Protein 7.5 (6.3-8.2) g/dL Albumin 4.1 (3.5-5.0) g/dL Urine Color Urine Appearance (Clear) Urine pH (5.0-8.0) Ur Specific [place] (1.001-1.035) Urine Protein (Negative) Urine Glucose (UA) (Negative) Urine Ketones (Negative) Urine Blood (Negative) Urine Nitrite (Negative) Urine Bilirubin (Negative) Urine Urobilinogen (<2.0) mg/dL Ur Leukocyte Esterase (Negative) Urine RBC (0-5) /hpf Urine WBC (0-5) /hpf Ur Squamous Epith Cells (0-4) /hpf Amorphous Sediment (None) /hpf Urine Bacteria (None) /hpf Hyaline Casts (0-2) /lpf Urine Mucus (None) /hpf Coronavirus (PCR) (Not Detectd) 03/19/21 03/19/21 Range/Units 23:29 23:30 WBC (3.8-10.6) k/uL RBC (3.80-5.40) m/uL Hgb (11.4-16.0) gm/dL Hct (34.0-46.0) % MCV (80.0-100.0) fL MCH (25.0-35.0) pg MCHC (31.0-37.0) g/dL RDW (11.5-15.5) % Plt Count (150-450) k/uL MPV Neutrophils % % Lymphocytes % % Monocytes % % Eosinophils % % Basophils % % Neutrophils # (1.3-7.7) k/uL Lymphocytes # (1.0-4.8) k/uL Monocytes # (0-1.0) k/uL Eosinophils # (0-0.7) k/uL Basophils # (0-0.2) k/uL PT (9.0-12.0) sec INR (<1.2) APTT (22.0-30.0) sec Sodium (137-145) mmol/L Potassium (3.5-5.1) mmol/L Chloride (98-107) mmol/L Carbon Dioxide (22-30) mmol/L Anion Gap mmol/L BUN (7-17) mg/dL Creatinine (0.52-1.04) mg/dL Est GFR (CKD-EPI)AfAm (>60 ml/min/1.73 sqM) Est GFR (CKD-EPI)NonAf (>60 ml/min/1.73 sqM) Glucose (74-99) mg/dL Calcium (8.4-10.2) mg/dL Total Bilirubin (0.2-1.3) mg/dL AST (14-36) U/L ALT (4-34) U/L Alkaline Phosphatase (38-126) U/L Total Protein (6.3-8.2) g/dL Albumin (3.5-5.0) g/dL Urine Color Light Yellow Urine Appearance Clear (Clear) Urine pH 7.0 (5.0-8.0) Ur Specific [place] 1.011 (1.001-1.035) Urine Protein Negative (Negative) Urine Glucose (UA) Negative (Negative) Urine Ketones Negative (Negative) Urine Blood Small H (Negative) Urine Nitrite Positive H (Negative) Urine Bilirubin Negative (Negative) Urine Urobilinogen <2.0 (<2.0) mg/dL Ur Leukocyte Esterase Negative (Negative) Urine RBC 5 (0-5) /hpf Urine WBC 3 (0-5) /hpf Ur Squamous Epith Cells 2 (0-4) /hpf Amorphous Sediment Moderate H (None) /hpf Urine Bacteria Occasional H (None) /hpf Hyaline Casts 3 H (0-2) /lpf Urine Mucus Rare H (None) /hpf Coronavirus (PCR) Not Detected (Not Detectd) - EKG Data -: EKG Interpreted by Me EKG shows normal: sinus rhythm Rate: normal EKG Comments: Ventricular rate 97 bpm, NH interval 120 ms, QRS duration 88 ms, QTC 447 ms, PRT axes 76/52/70. Sinus rhythm, septal infarct age undetermined, abnormal ECG. - Radiology Data Radiology results: report reviewed, image reviewed X-ray left hip: Acute impacted subcapital fracture left femur approximate 2 cm of impaction. X-ray lumbar spine: There is degenerative first to be L4-L5 spondylolisthesis. Old mild compression fracture of L5 no definite acute fracture. Disposition Clinical Impression: Subcapital fracture of left femur, Fall Disposition: ADMITTED IP TO THIS HOSP Condition: Stable Is patient prescribed a controlled substance at d/c from ED?: No Time of Disposition: 22:52
--- NOTE | 2021-03-19 22:40 | XR ---
EXAMINATION TYPE: XR chest 1V portable DATE OF EXAM: 03/19/2021 COMPARISON: 05/26/2016 HISTORY: Preop TECHNIQUE: Leeanne view FINDINGS: There is some mild coarse interstitial density at the lung apices. Heart size is normal. Th ere is no heart failure. There are no hilar masses. Thoracic aorta is atheromatous. Bony thorax is in tact. IMPRESSION: Mild fibrotic changes at the lung apices. Normal heart. No definite acute lung disease.
[2021-03-19] MEDS: SODIUM CHLORIDE 0.9% 1,000 ML IV SCH (22:59)
[2021-03-19 23:08] LABS: ALT 22 U/L (4-34); AST 39 U/L (14-36); African American GFR (CKD) >90 (>60 ml/min/1.73 sqM); Albumin 4.1 g/dL (3.5-5.0); Alkaline Phosphatase 71 U/L (38-126); Anion Gap 7 mmol/L; Blood Urea Nitrogen 22 mg/dL (7-17); Calcium 9.3 mg/dL (8.4-10.2); Carbon Dioxide 37 mmol/L (22-30); Chloride 92 mmol/L (98-107); Glucose 131 mg/dL (74-99); Non-African American GFR(CKD) >90 (>60 ml/min/1.73 sqM); Sodium 136 mmol/L (137-145); Total Bilirubin 1.1 mg/dL (0.2-1.3); Total Protein 7.5 g/dL (6.3-8.2)
[2021-03-20] LABS: Amorphous Sediment,Urine Moderate /hpf; Appearance,Urine Clear (Clear); Bacteria,Urine Occasional /hpf; Bilirubin,Urine Negative (Negative); Blood,Urine Small (Negative); Color,Urine Light Yellow; Glucose,Urine (UA) Negative (Negative); Hyaline Casts,Urine 3 /lpf (0-2); Ketones,Urine Negative (Negative); Leukocyte Esterase,Urine Negative (Negative); Mucus,Urine Rare /hpf; Nitrite,Urine Positive (Negative); Protein,Urine Negative (Negative); RBC,Urine 5 /hpf (0-5); Specific Gravity,Urine 1.011 (1.001-1.035); Squamous Epithelial Cell,Urine 2 /hpf (0-4); Urobilinogen,Urine <2.0 mg/dL (<2.0); WBC,Urine 3 /hpf (0-5)
[2021-03-20] MEDS: HYDROmorphone 1 MG/ML 1 ML SYRINGE IVP PRN ×5 (02:19→21:27)
[2021-03-20] MEDS ORDERED: ALBUTEROL NEBULIZED 2.5 MG/3 ML INHALATION PRN (05:04)
--- NOTE | 2021-03-20 05:15 | P.CONS ---
History of Present Illness - Reason for Consult Consult date: 03/19/21 medical clearance Requesting physician: Judith Cabrera - Chief Complaint left hip pain - History of Present Illness 70-year-old female nonverbal with complex past medical history. Patient currently on hospice due to advanced COPD. However patient sustained a fall today over several steps of stairs resulting and pain over her left hip for which family brought to the hospital for evaluation. No other details are available for me at this time patient is nonverbal and unable to provide any meaningful history family is not available at this time for interview Workup in the ED showed anemia with hemoglobin 11.2, Covid testing negative, urine analysis was positive for possible infection however this could not be verified with the patient as she is unable to provide any meaningful history, EKG showed normal sinus rhythm, chest x-ray unremarkable, hip showed acute impac rand subcapital fracture of left femur with 2 cm impaction Review of Systems ROS unobtainable: due to mental status Past Medical History Past Medical History: Heart Failure, COPD, GERD/Reflux, Hyperlipidemia, Hypertension, Osteoarthritis (OA), Pulmonary Embolus (PE), Seizure Disorder Additional Past Medical History / Comment(s): Syncope and collapse requiring CPR intubation and mechanical ventilation approximately 4 days in [place] (December 2010), "ONLY HAVE 20% LUNG FUNCTION",HOME 02-4 LITERS N/C ATC,CATARACTS, OCC INCONT OF URINE,OSTEOPENIA, "ARRYTHMIA" History of Any Multi-Drug Resistant Organisms: None Reported Past Surgical History: Heart Catheterization, Hysterectomy, Orthopedic Surgery, Tubal Ligation Additional Past Surgical History / Comment(s): bilat knee replacement, pins and screws in left foot. bunionectomy, hammer toe sx, Past Anesthesia/Blood Transfusion Reactions: No Reported Reaction Additional Past Anesthesia/Blood Transfusion Reaction / Comm: blood transfusion- no reactions Past Psychological History: Anxiety, Depression Smoking Status: Current every day smoker Past Alcohol Use History: None Reported Past Drug Use History: None Reported - Past Family History Father Family Medical History: Unable to Obtain Mother Family Medical History: Cancer Brother(s) Family Medical History: Cancer Medications and Allergies Home Medications Medication Instructions Recorded Confirmed Type Lisinopril [Zestril] 10 mg PO BID 11/13/13 03/19/21 History Sertraline [Zoloft] 100 mg PO DAILY 11/13/13 03/19/21 History Aspirin EC [Ecotrin Low Dose] 81 mg PO DAILY #1 tablet. 11/17/13 03/19/21 Rx Oxybutynin Chloride [Ditropan] 5 mg PO BID 05/26/16 03/19/21 History Albuterol Inhaler [Ventolin Hfa 2 puff INHALATION RT-Q4H PRN 03/19/21 03/19/21 History Inhaler] Celecoxib [CeleBREX] 100 mg PO DAILY 03/19/21 03/19/21 History LORazepam [Ativan] 0.5 mg PO Q6H PRN 03/19/21 03/19/21 History Lovastatin [Mevacor] 40 mg PO DAILY 03/19/21 03/19/21 History Metoprolol Tartrate [Lopressor] 25 mg PO BID 03/19/21 03/19/21 History Morphine Sulfate [Morphine Sulfate 5 mg PO Q4H PRN 03/19/21 03/19/21 History Oral Soln Conc (20 MG/ML)] predniSONE 5 mg PO DAILY 03/19/21 03/19/21 History Allergies Allergy/AdvReac Type Severity Reaction Status Date / Time codeine Allergy Rash/Hives Verified 03/19/21 22:18 Physical Exam Vitals: Vital Signs Temp Pulse Resp BP Pulse Ox 03/19/21 21:44 94 18 161/81 93 L 03/19/21 21:01 98.3 F 98 18 133/84 94 L Intake and Output 03/19/21 03/19/21 03/19/21 06:59 14:59 22:59 Other: Weight 65.771 kg Constitutional: Opens eyes to verbal stimulation otherwise patient is nonverbal patient does not follow commands however she is moving spontaneously while laying down in bed Eyes: Anicteric sclerae, moist conjunctiva, Pupils equal round reactive to light ENMT: NC Oropharynx clear, no erythema, or exudates Neck: Supple no masses, or JVD No carotid bruits No thyromegaly Lungs: Clear to auscultation Clear to percussion Normal respiratory effort, no accessory muscle use Cardiovascular: Heart regular in rate and rhythm, No murmurs, gallops, or rubs No peripheral edema Abdominal: Soft Nontender, no guarding, rebound or rigidity Abdomen moving with respiration Normoactive bowel sounds No hepatomegaly, No splenomegaly No palpable mass No abdominal wall hernia noted Skin: Slight bruising over the right hip, otherwise Normal temperature, tone, texture, turgor Extremities: No digital cyanosis No clubbing Pedal pulses intact and symmetrical Radial pulses intact and symmetrical No calf tenderness Psychiatric: Opens eyes to verbal stimulation patient otherwise nonverbal Neuro unable to perform proper neuro exam patient cannot cooperate or follow commands Lymphatics: no palpable cervical or supraclavicular , or inguinal lymph nodes Results CBC & Chem 7: 03/19/21 21:42 03/19/21 21:42 Labs: Abnormal Lab Results - Last 24 Hours (Table) 03/19/21 03/19/21 Range/Units 21:42 21:42 Hgb 11.2 L (11.4-16.0) gm/dL Neutrophils # 7.8 H (1.3-7.7) k/uL Lymphocytes # 0.7 L (1.0-4.8) k/uL APTT 20.8 L (22.0-30.0) sec Assessment and Plan Assessment: Acute impacted subcapital fracture of the left femur with 2 cm impaction secondary to accidental fall Await orthopedic evaluation for further recommendations regarding management Patient not a good candidate for surgical intervention due to advanced disease and multiple comorbidities which carries a very high risk of perioperative cardiovascular and pulmonary complication, await further orthopedic evaluation regarding options of treatment, also await family feedback regarding goals of therapy as patient has been under hospice care up until today. Due to advanced pulmonary disease Patient charts indicates vague history of seizure and CHF unable to verify patie nt history at this time Suspected component of urinary tract infection again patient unable to provide any meaningful history of patient spikes a fever with consider starting patient on antibiotics Meeting with family to set goals of therapy Await orthopedic evaluation further recommendations regarding options for patient fracture treatment Patient is high risk for perioperative cardiovascular and pulmonary complication if she chooses to go to surgery DVT prophylaxis and pain management per orthopedics Patient is full code Thank you for allowing us to participate in the care of this patient. Do not hesitate to contact us with questions. Someone can be reached from the [facility] hospitalist group at all hours of the day at [phone].
[2021-03-20] MEDS: SODIUM CHLORIDE 0.9% 1,000 ML IV SCH ×4 (06:57→22:46)
[2021-03-20] MEDS: SERTRALINE 100 MG TAB PO SCH (09:38)
[2021-03-20] MEDS: ATORVASTATIN 10 MG TAB PO SCH ×2 (09:38→10:22)
[2021-03-20] MEDS: lisinopriL 10 MG TAB PO SCH ×3 (10:22→21:28)
[2021-03-20] MEDS: METOPROLOL TARTRATE 25 MG TAB PO SCH ×2 (10:22→21:28)
[2021-03-20] MEDS: predniSONE 5 MG TAB PO SCH (10:23)
--- NOTE | 2021-03-20 11:46 | P.HPOR ---
<FredCaryn - Last Filed: 03/20/21 11:34> History of Present Illness H&P Date: 03/20/21 Chief Complaint: Left hip pain This is a 70-year-old female who is nonverbal with multiple medical comorbid ities. She is currently in hospice care. She reportedly fell down some steps on 03/20/2021 sustaining injury to her left hip. She is brought to the emergency department and admitted to our service. Past Medical History Past Medical History: Heart Failure, COPD, GERD/Reflux, Hyperlipidemia, Hypertension, Osteoarthritis (OA), Pulmonary Embolus (PE), Seizure Disorder Additional Past Medical History / Comment(s): Syncope and collapse requiring CPR intubation and mechanical ventilation approximately 4 days in [place] (December 2010), "ONLY HAVE 20% LUNG FUNCTION",HOME 02-4 LITERS N/C ATC,CATARACTS, OCC INCONT OF URINE,OSTEOPENIA, "ARRYTHMIA" History of Any Multi-Drug Resistant Organisms: None Reported Past Surgical History: Heart Catheterization, Hysterectomy, Orthopedic Surgery, Tubal Ligation Additional Past Surgical History / Comment(s): bilat knee replacement, pins and screws in left foot. bunionectomy, hammer toe sx, Past Anesthesia/Blood Transfusion Reactions: No Reported Reaction Additional Past Anesthesia/Blood Transfusion Reaction / Comment(s): blood transfusion-no reactions Past Psychological History: Anxiety, Depression Smoking Status: Current every day smoker Past Alcohol Use History: None Reported Past Drug Use History: None Reported - Past Family History Father Family Medical History: Unable to Obtain Mother Family Medical History: Cancer Brother(s) Family Medical History: Cancer Medications and Allergies Home Medications Medication Instructions Recorded Confirmed Type Lisinopril [Zestril] 10 mg PO BID 11/13/13 03/19/21 History Sertraline [Zoloft] 100 mg PO DAILY 11/13/13 03/19/21 History Aspirin EC [Ecotrin Low Dose] 81 mg PO DAILY #1 tablet. 11/17/13 03/19/21 Rx Oxybutynin Chloride [Ditropan] 5 mg PO BID 05/26/16 03/19/21 History Albuterol Inhaler [Ventolin Hfa 2 puff INHALATION RT-Q4H PRN 03/19/21 03/19/21 History Inhaler] Celecoxib [CeleBREX] 100 mg PO DAILY 03/19/21 03/19/21 History LORazepam [Ativan] 0.5 mg PO Q6H PRN 03/19/21 03/19/21 History Lovastatin [Mevacor] 40 mg PO DAILY 03/19/21 03/19/21 History Metoprolol Tartrate [Lopressor] 25 mg PO BID 03/19/21 03/19/21 History Morphine Sulfate [Morphine Sulfate 5 mg PO Q4H PRN 03/19/21 03/19/21 History Oral Soln Conc (20 MG/ML)] predniSONE 5 mg PO DAILY 03/19/21 03/19/21 History Allergies Allergy/AdvReac Type Severity Reaction Status Date / Time codeine Allergy Rash/Hives Verified 03/19/21 22:18 Physical Examination This is a pleasant 70-year-old female who is essentially nonverbal and is unable to respond appropriately. She does answer yes or no questions. She appears resting soundly. No acute distress. Exam of the lower extremities reveals no acute abnormalities or deformity to the head and neck. Exam the upper extremities is unremarkable. No obvious deformity. Exam of the lower extremities reveals external rotation and slight shortening to the left leg. Neurovascular status to the lower extremities is intact. Results X-rays reveal a displaced femoral neck fracture. No other fractures identified. - Labs Labs: Abnormal Lab Results - Last 24 Hours (Table) 03/19/21 03/19/21 03/19/21 Range/Units 21:42 21:42 21:42 Hgb 11.2 L (11.4-16.0) gm/dL Neutrophils # 7.8 H (1.3-7.7) k/uL Lymphocytes # 0.7 L (1.0-4.8) k/uL APTT 20.8 L (22.0-30.0) sec Sodium 136 L (137-145) mmol/L Chloride 92 L (98-107) mmol/L Carbon Dioxide 37 H (22-30) mmol/L BUN 22 H (7-17) mg/dL Glucose 131 H (74-99) mg/dL AST 39 H (14-36) U/L Urine Blood (Negative) Urine Nitrite (Negative) Amorphous Sediment (None) /hpf Urine Bacteria (None) /hpf Hyaline Casts (0-2) /lpf Urine Mucus (None) /hpf 03/19/21 Range/Units 23:30 Hgb (11.4-16.0) gm/dL Neutrophils # (1.3-7.7) k/uL Lymphocytes # (1.0-4.8) k/uL APTT (22.0-30.0) sec Sodium (137-145) mmol/L Chloride (98-107) mmol/L Carbon Dioxide (22-30) mmol/L BUN (7-17) mg/dL Glucose (74-99) mg/dL AST (14-36) U/L Urine Blood Small H (Negative) Urine Nitrite Positive H (Negative) Amorphous Sediment Moderate H (None) /hpf Urine Bacteria Occasional H (None) /hpf Hyaline Casts 3 H (0-2) /lpf Urine Mucus Rare H (None) /hpf H & H 03/19/21 Range/Units 21:42 Hgb 11.2 L (11.4-16.0) gm/dL Hct 35.1 (34.0-46.0) % Coagulation 03/19/21 Range/Units 21:42 INR 0.9 (<1.2) Result Diagrams: 03/19/21 21:42 03/19/21 21:42 Assessment and Plan (1) Fall Current Visit: Yes Status: Acute Code(s): W19.XXXA - UNSPECIFIED FALL, INITIAL ENCOUNTER SNOMED Code(s): 3729215 (2) Subcapital fracture of left femur Current Visit: Yes Status: Acute Code(s): S72.012A - UNSP INTRACAPSULAR FRACTURE OF LEFT FEMUR, INIT FOR CLOS FX SNOMED Code(s): 023491533 Plan: The clinical and x-ray findings are discussed with the patient and with family. It is recommended she undergo hemiarthroplasty of the left hip. The family had a long discussion with Dr. Cabrera regarding surgical versus nonsurgical treatment. The patient is high risk for surgery, however with a hip fracture the risks versus benefits of surgical intervention was discussed. The patient's family agrees to proceed with hemiarthroplasty of the left hip. <Juidth Cabrera - Last Filed: 03/20/21 16:32> Physical Examination Osteopathic Statement: *. No significant issues noted on an osteopathic structural exam other than those noted in the History and Physical/Consult. Results - Labs Labs: Abnormal Lab Results - Last 24 Hours (Table) 03/19/21 03/19/21 03/19/21 Range/Units 21:42 21:42 21:42 Hgb 11.2 L (11.4-16.0) gm/dL Neutrophils # 7.8 H (1.3-7.7) k/uL Lymphocytes # 0.7 L (1.0-4.8) k/uL APTT 20.8 L (22.0-30.0) sec Sodium 136 L (137-145) mmol/L Chloride 92 L (98-107) mmol/L Carbon Dioxide 37 H (22-30) mmol/L BUN 22 H (7-17) mg/dL Glucose 131 H (74-99) mg/dL AST 39 H (14-36) U/L Urine Blood (Negative) Urine Nitrite (Negative) Amorphous Sediment (None) /hpf Urine Bacteria (None) /hpf Hyaline Casts (0-2) /lpf Urine Mucus (None) /hpf 03/19/21 Range/Units 23:30 Hgb (11.4-16.0) gm/dL Neutrophils # (1.3-7.7) k/uL Lymphocytes # (1.0-4.8) k/uL APTT (22.0-30.0) sec Sodium (137-145) mmol/L Chloride (98-107) mmol/L Carbon Dioxide (22-30) mmol/L BUN (7-17) mg/dL Glucose (74-99) mg/dL AST (14-36) U/L Urine Blood Small H (Negative) Urine Nitrite Positive H (Negative) Amorphous Sediment Moderate H (None) /hpf Urine Bacteria Occasional H (None) /hpf Hyaline Casts 3 H (0-2) /lpf Urine Mucus Rare H (None) /hpf H & H 03/19/21 Range/Units 21:42 Hgb 11.2 L (11.4-16.0) gm/dL Hct 35.1 (34.0-46.0) % Coagulation 03/19/21 Range/Units 21:42 INR 0.9 (<1.2) Result Diagrams: 03/19/21 21:42 03/19/21 21:42 Assessment and Plan Plan: Patient is seen and examined with Caryn Ibarra. Melissa is a 70-year-old female who has an extensive medical history. She is currently on hospice for cardiovascular and pulmonary issues. She has been evaluated by the medicine team and deemed high risk for surgical intervention. However she is ambulatory at home. She unfortunately suffered a fall sustaining a left femoral neck fracture. Past medical history past surgical history review of systems social history family history and medications and ALLERGIES were reviewed as above. On examination today the patient is relatively nonverbal and cannot follow commands. The exam is thus very limited. X-rays demonstrate a femoral neck fracture that is displaced. After long discussion with the patient's daughter about the risks and benefits of surgery. Patient is at high risk for complication after any surgical intervention. However without surgical intervention she will not heal and nba dietz be in pain and be bedridden. Patient's daughter talked with her siblings and decided to proceed with surgical intervention understanding the high risk of complication. Plan to do a ernst-hip arthroplasty tomorrow.
--- NOTE | 2021-03-20 15:29 | P.PN ---
Subjective Progress Note Date: 03/20/21 Hospital course: Patient is a 70-year-old female with a complex past medical history including end-stage COPD 4 L home dependent at all times currently under hospice care who presented to the emergency department status post falling down several steps in her home resulting in injury to left hip. In the emergency department an x-ray was completed revealing an acute impacted subcapital fracture of left femur with approximate 2 cm of impaction. EKG showing normal sinus rhythm and 97 bpm with no noted T-wave or ST abnormalities. Patient is admitted under primary orthopedic surgery team and we have been consulted to provide medical management throughout hospitalization. Physical exam: Patient seen and fully evaluated at the bedside this morning. She is currently resting and appeared comfortable on 5 L O2 via nasal cannula. Patient reports baseline home oxygen 4 L. She reports pain in her left leg "okay". She denied having any other complaints or complete concerns at this time including chest pain, palpitations, or increased shortness of breath. Labs reviewed and stable. Vital signs reviewed and stable. General: Nontoxic, no distress and appears stated age. Derm: Skin warm and dry, normal coloration for ethnicity. Head: Atraumatic, normocephalic and symmetric. Eyes: EOMs intact, no lid lag, and anicteric sclera Mouth: no lip lesions, mucus membranes moist Cardiovascular: regular rate and rhythm with normal S1S2, no murmur, positive posterior tibial pulses bilaterally, and cap refill < 2 seconds. Lungs: Respirations even, regular, and unlabored on room air. Lungs CTA bilaterally, no rhonchi, no rales, no wheezing, and no accessory muscle usage. Abdominal: soft, nontender to palpation, no guarding, no appreciable organomegaly Ext: ROM intact. No gross muscle atrophy, no edema, no contractures Neuro: Speech clear, face symmetrical and CN II-XII grossly intact with no noted focal neuro deficits Psych: Alert and oriented to person, place, time, and situation. Appropriate and pleasant affect. Assessment and Plan of Care: Accidental Fall down stairs Left subcapital femur fracture -X-ray left hip revealing an acute impacted subcapital fracture of left femur with approximate 2 cm of impaction. -Primary admitting orthopedic surgery team tentative plan for surgical repair. -Symptomatic care and pain management -Fall precautions -Pain management, DVT prophylaxis, weightbearing, and PT/OT to be managed per primary admitting orthopedic surgery team. End-stage COPD -Continue supplemental oxygen to maintain SpO2 equal to or greater than 90%. -Albuterol nebulizers as needed. Hypertension Monitor vital signs and continue daily medication regimen with lisinopril and metoprolol Hyperlipidemia Continue daily medication management with atorvastatin. Thank you for allowing us to participate in the care of this pleasant patient. Do not hesitate to contact us with questions. Someone can be reached from the [facility] hospitalist group all hours of the day at [phone] or via [employer]. Objective - Vital Signs Vital signs: Vital Signs Temp 98.0 F 03/20/21 06:20 Pulse 98 03/20/21 11:06 Resp 24 03/20/21 11:06 BP 138/78 03/20/21 11:06 Pulse Ox 90 L 03/20/21 11:06 Intake & Output 03/19/21 03/20/21 03/20/21 18:59 06:59 18:59 Output Total 100 Balance -100 Weight 65.771 kg Output: Urine 100 Uretheral (Cornelius) 100 - Labs CBC & Chem 7: 03/19/21 21:42 03/19/21 21:42 Labs: Abnormal Lab Results - Last 24 Hours (Table) 03/19/21 03/19/21 03/19/21 Range/Units 21:42 21:42 21:42 Hgb 11.2 L (11.4-16.0) gm/dL Neutrophils # 7.8 H (1.3-7.7) k/uL Lymphocytes # 0.7 L (1.0-4.8) k/uL APTT 20.8 L (22.0-30.0) sec Sodium 136 L (137-145) mmol/L Chloride 92 L (98-107) mmol/L Carbon Dioxide 37 H (22-30) mmol/L BUN 22 H (7-17) mg/dL Glucose 131 H (74-99) mg/dL AST 39 H (14-36) U/L Urine Blood (Negative) Urine Nitrite (Negative) Amorphous Sediment (None) /hpf Urine Bacteria (None) /hpf Hyaline Casts (0-2) /lpf Urine Mucus (None) /hpf 03/19/21 Range/Units 23:30 Hgb (11.4-16.0) gm/dL Neutrophils # (1.3-7.7) k/uL Lymphocytes # (1.0-4.8) k/uL APTT (22.0-30.0) sec Sodium (137-145) mmol/L Chloride (98-107) mmol/L Carbon Dioxide (22-30) mmol/L BUN (7-17) mg/dL Glucose (74-99) mg/dL AST (14-36) U/L Urine Blood Small H (Negative) Urine Nitrite Positive H (Negative) Amorphous Sediment Moderate H (None) /hpf Urine Bacteria Occasional H (None) /hpf Hyaline Casts 3 H (0-2) /lpf Urine Mucus Rare H (None) /hpf
[2021-03-21] MEDS: HYDROmorphone 1 MG/ML 1 ML SYRINGE IVP PRN ×5 (04:37→17:13)
[2021-03-21] MEDS: SERTRALINE 100 MG TAB PO SCH (08:16)
[2021-03-21] MEDS: METOPROLOL TARTRATE 25 MG TAB PO SCH (08:16)
[2021-03-21] MEDS: predniSONE 5 MG TAB PO SCH (08:16)
[2021-03-21] MEDS: ATORVASTATIN 10 MG TAB PO SCH (08:16)
[2021-03-21] MEDS: lisinopriL 10 MG TAB PO SCH (08:16)
[2021-03-21] MEDS ORDERED: ALBUTEROL NEBULIZED 2.5 MG/3 ML INHALATION ONE ×3 (09:35→22:50)
--- NOTE | 2021-03-21 10:21 | CDI ---
Documentation Clarification Form Date: 03/21/2021 09:59:33 AM From: Shirin Jernigan RN CCDS Admit Date: 03/19/2021 11:47:00 PM Patient Name: Melissa Dixon Visit Number: [id number] Discharge Date: ATTENTION: The Clinical Documentation Specialists (CDI) and [facility] Coding Staff appreciate your assistance in clarifying documentation. Please respond to the clarification below the line at the bottom and electronically sign. The CDI & [facility] Coding staff will review the response and follow-up if needed. Please note: Queries are made part of the Legal Health Record. If you have any questions, please contact the author of this message via ITS. Dr. Marichuy Sanchez Your patient has home oxygen 4L around the clock, 03/19, Medicine consult. Based on this information and the findings below, is there an additional diagnosis that is clinically appropriate for this patient? History/Risk Factors: 70-year-old female presents to the ED after a fall on stairs, with pain to her left hip. Medical history: End stage COPD and home oxygen 2-4L nc ATC. Internal Medicine consult, 03/19. Tobacco use: Current every day smoker. Home oxygen: 4L Clinical Indicators: Vital signs: 03/19 B/P 133/84, HR 98, Temp 98.3, RR 18, SpO2 94% 4L nc Lung/Breathing assessment: 03/19 Internal Medicine consult: Clear to auscultation, clear to percussion, normal respiratory effort and no accessory muscle use. Treatment: Breathing tx 03/20 Ventolin 2.5mg inhalation RT Q4H PRN, Oxygen: 03/19 to current 4L nc Is there an additional diagnosis that is clinically appropriate for this patient? [ ] Chronic Respiratory Failure [ ] Other Diagnosis, please specify [ ] Unable to determine Answered on Medicine progress note 03/21 chronic hypoxic rep failure secondary to end stage COPD home oxygen dependent on 4L at all times Dr Sanchez and Cyndee MANZANO (Template Last Revised: July 2020) MARY
[2021-03-21] MEDS: SODIUM CHLORIDE 0.9% 1,000 ML IV SCH ×2 (12:46→13:29)
--- NOTE | 2021-03-21 15:01 | P.PN ---
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 In the emergency department an x-ray was completed revealing an acute impacted subcapital fracture of left femur with approximate 2 cm of impaction. EKG showing normal sinus rhythm and 97 bpm with no noted T-wave or ST abnormalities. Patient is admitted under primary orthopedic surgery team and we have been consulted to provide medical management throughout hospitalization. Physical exam: Patient seen and fully evaluated at the bedside this morning. She is currently resting and appeared comfortable on baseline 4L O2 via nasal cannula. She states pain in left leg and ortho plans to take pt to the OR today for repair. Pt denies having any other complaints or complete concerns at this time including chest pain, palpitations, or increased shortness of breath. Vital signs reviewed and stable. Morning labs ordered. General: Nontoxic, no distress and appears stated age. Derm: Skin warm and dry, normal coloration for ethnicity. Head: Atraumatic, normocephalic and symmetric. Eyes: EOMs intact, no lid lag, and anicteric sclera Mouth: no lip lesions, mucus membranes moist Cardiovascular: regular rate and rhythm with normal S1S2, no murmur, positive posterior tibial pulses bilaterally, and cap refill < 2 seconds. Lungs: Respirations even, regular, and unlabored on room air. Lungs CTA bilaterally, no rhonchi, no rales, no wheezing, and no accessory muscle usage. Abdominal: soft, nontender to palpation, no guarding, no appreciable organomegaly Ext: ROM intact. No gross muscle atrophy, no edema, no contractures Neuro: Speech clear, face symmetrical and CN II-XII grossly intact with no noted focal neuro deficits Psych: Alert and oriented to person, place, time, and situation. Appropriate and pleasant affect. Assessment and Plan of Care: Accidental Fall down stairs Left subcapital femur fracture -X-ray left hip revealing an acute impacted subcapital fracture of left femur with approximate 2 cm of impaction. -Patient is high risk for perioperative cardiovascular and pulmonary complications. -Primary admitting orthopedic surgery team plan for surgical repair later today. -Symptomatic care and pain management -Fall precautions -Pain management, DVT prophylaxis, weightbearing, and PT/OT to be managed per primary admitting orthopedic surgery team. End-stage COPD Chronic hypoxic respriatory failure secondary to end stage COPD home oxygen dependent on 4L at all times -Continue supplemental oxygen to maintain SpO2 equal to or greater than 90%. -Albuterol nebulizers as needed. Hypertension Monitor vital signs and continue daily medication regimen with lisinopril and metoprolol Hyperlipidemia Continue daily medication management with atorvastatin. Thank you for allowing us to participate in the care of this pleasant patient. Do not hesitate to contact us with questions. Someone can be reached from the [facility] hospitalist group all hours of the day at [phone] or via [place]. Objective - Vital Signs Vital signs: Vital Signs Temp 97.8 F 03/21/21 07:34 Pulse 80 03/21/21 07:34 Resp 18 03/21/21 07:34 BP 143/67 03/21/21 07:34 Pulse Ox 96 03/21/21 07:34 Intake & Output 03/20/21 03/21/21 03/21/21 18:59 06:59 18:59 Intake Total 260 240 Output Total 900 Balance 260 -660 Weight 65.771 kg Intake: Intake, IV Titration 260 Amount Sodium Chloride 0.9% 1, 260 000 ml @ 130 mls/hr IV . Q7H42M [facility] Rx#:[id number] Oral 240 Output: Urine 900 Other: Voiding Method Indwelling Catheter External Catheter # Bowel Movements 0 - Labs CBC & Chem 7: 03/19/21 21:42 03/19/21 21:42
[2021-03-21] MEDS ORDERED: LIDOCAINE 1% (10MG/ML) FOR IV START INTRADERMA PRN (17:15)
[2021-03-21] MEDS ORDERED: DEXAMETHASONE SOD PHOSPHATE 4 MG/ML 1 ML VIAL IV ONE (17:15)
[2021-03-21] MEDS ORDERED: LACTATED RINGERS 1,000 ML IV SCH (17:15)
[2021-03-21] MEDS ORDERED: ONDANSETRON 4 MG/2 ML VIAL IVP ONE (17:15)
[2021-03-21] MEDS: ACETAMINOPHEN TAB 325 MG TAB PO PRN (17:26)
[2021-03-21] MEDS: IPRATROPIUM-ALBUTEROL 3 ML NEB INHALATION SCH ×3 (17:27→23:49)
[2021-03-21] MEDS ORDERED: hydrOXYzine pamoate 25 MG CAP PO PRN (18:12)
[2021-03-21] MEDS ORDERED: HYDROcodone/APAP 5-325MG 1 EACH TAB PO PRN (18:12)
[2021-03-21] MEDS ORDERED: PROPOFOL 10 MG/ML 20 ML VIAL IV ONE (18:56)
[2021-03-21] MEDS ORDERED: fentaNYL (PF) 50 MCG/ML 2 ML AMP ONE (18:56)
[2021-03-21] MEDS ORDERED: LACTATED RINGERS 1,000 ML IV ONE (19:48)
[2021-03-21] MEDS ORDERED: SODIUM CHLORIDE 0.9% 50 ML with ceFAZolin 2,000 MG IV ONE ×2 (19:49)
[2021-03-21] MEDS: LACTATED RINGERS 1,000 ML IV ONE (21:25)
--- NOTE | 2021-03-21 21:38 | P.OP ---
Date of Procedure: 03/21/21 Preoperative Diagnosis: Left femoral neck fracture Postoperative Diagnosis: Left femoral neck fracture Procedure(s) Performed: Left cemented hip hemiarthroplasty Implants: [place] Acc[place]ade cemented stem 132 deg size 3 +4 mm offset head, bipolar component Anesthesia: spinal Surgeon: Judith Cabrera [employer] Monitoring Technician #1: James Butcher Groundwater Monitoring Technician #2: Evelia Reese Estimated Blood Loss (ml): 300 Condition: stable Disposition: PACU Indications for Procedure: Patient is a 70-year-old female who fell sustaining a left displaced femoral neck fracture. She is currently on hospice for multiple comorbidities, including dementia. However after a long discussion with her family members including her daughter who is her POA, they decided to proceed with surgical intervention. Description of Procedure: Patient, operative extremity, and procedure were identified in the preoperative holding area. After consent was obtained from the patient's POA/daughter, patient was brought back to the operating room. There she received a spinal block by the anesthesia team. She was then placed on the operating table in a lateral decubitus position. The left lower extremity was then prepped and draped in normal sterile fashion. Formal timeout was performed. Incision was made for posterior portion. Dissection was carried down to the IT band which was then split longitudinally. Charnley was placed. External rotators and abductors were identified. Katelyn was placed under the abductors to protect them. The external rotators and posterior capsule were then incised in an L-shaped pattern. Femoral neck was exposed. Femoral head was removed with a corkscrew. Femoral neck was then prepared with a saw, leaving about 15 mm of femoral neck. Canal finder was then introduced and a lateralizer was then used. Arches were then used to prepare the canal and a size 3 was found to be appropriate. As was trialed with a neutral bipolar head down to be stable but with a somewhat short in leg length. Decision was then made to use a size 3. Femoral canal was prepped for cement. Cement was prepared. Cement restrictor was introduced and femoral canal was dried as much as possible. Cement was then introduced into the canal and gently pressurized. Stem was then placed appropriately and carefully held while the cement cured. +4 was then trialed and found to be appropriate. This was opened and final implants were placed. The hip was taken through full range of motion and found to be stable, leg lengths were checked and found to be approximately even. Wound was thoroughly irrigated with pulsatile External rotator and posterior capsule were then repaired through drill holes in the greater trochanter. IT band was closed with strata 6 a layered closure was then performed with 2-0 Vicryl and 4-0 Monocryl and skin glue. Wound was dressed with silver dressing. Abductor pillow placed. She was aroused from sedation and brought to PACU in stable condition
--- NOTE | 2021-03-21 22:04 | XR ---
EXAMINATION TYPE: XR Hip Limited LT DATE OF EXAM: 03/21/2021 COMPARISON: NONE HISTORY: Hip surgery TECHNIQUE: Single view FINDINGS: There is left hip prosthesis. Components appear in anatomic position. IMPRESSION: No complicating process seen.
[2021-03-21] MEDS ORDERED: hydrALAZINE HCL 20 MG/ML 1 ML VIAL ONE (22:16)
[2021-03-21] MEDS ORDERED: hydrALAZINE HCL 20 MG/ML 1 ML VIAL IVP ONE ×2 (22:20→22:25)
[2021-03-21] MEDS ORDERED: HYDROmorphone 0.5 MG/0.5 ML SYRINGE IVP ONE ×2 (22:38→22:43)
[2021-03-22] MEDS: HYDROmorphone 1 MG/ML 1 ML SYRINGE IVP PRN ×5 (00:24→17:59)
[2021-03-22] MEDS: METOPROLOL TARTRATE 25 MG TAB PO SCH ×3 (00:26→22:26)
[2021-03-22] MEDS: lisinopriL 10 MG TAB PO SCH ×3 (00:26→22:27)
[2021-03-22] MEDS: SODIUM CHLORIDE 0.9% 1,000 ML IV SCH ×2 (00:26→04:46)
[2021-03-22] MEDS: LACTATED RINGERS 1,000 ML IV ONE (00:27)
[2021-03-22] MEDS: SENNOSIDES-DOCUSATE SODIUM 1 EACH TAB PO SCH ×2 (00:27→22:27)
[2021-03-22] MEDS: IPRATROPIUM-ALBUTEROL 3 ML NEB INHALATION SCH ×6 (03:52→23:58)
[2021-03-22] MEDS: ACETAMINOPHEN TAB 325 MG TAB PO PRN ×2 (06:15→17:10)
[2021-03-22] MEDS: ONDANSETRON 4 MG/2 ML VIAL IVP PRN ×2 (06:24→22:27)
[2021-03-22] MEDS ORDERED: fentaNYL (PF) 50 MCG/ML 2 ML AMP IV PRN (07:00)
--- NOTE | 2021-03-22 09:37 | P.PN ---
Subjective Progress Note Date: 03/22/21 Principal diagnosis: Status post left hip hemiarthroplasty This is a 70 year-old female post left hip hemiarthroplasty. This is post-op day 1. The patient was evaluated at the bedside today. The patient is resting comfortably and is unable verbalize how she feels today. Physical therapy hasn't evaluated the patient yet. Case management and family are trying to determine if she will return to hospice or go to skilled rehab upon discharge. Objective - Vital Signs Vital signs: Vital Signs Temp 98.9 F 03/22/21 08:41 Pulse 96 03/22/21 08:43 Resp 19 03/22/21 08:41 BP 134/62 03/22/21 08:41 Pulse Ox 93 L 03/22/21 08:41 Intake & Output 03/21/21 03/22/21 03/22/21 18:59 06:59 18:59 Intake Total 2350 Output Total 1000 675 Balance -1000 1675 Weight 65.771 kg Intake: IV 1350 Intake, IV Titration 1000 Amount Sodium Chloride 0.9% 1, 1000 000 ml @ 130 mls/hr IV . Q7H42M [facility] Rx#:[id number] Output: Urine 1000 375 Estimated Blood Loss 300 Other: Voiding Method External Catheter External Catheter Indwelling Catheter # Bowel Movements 0 - Exam The patient does not appear in acute distress. She opens her eyes to stimuli but is nonverbal. Dressing is clean dry and intact. Abductor pillow in place. Calf is soft and nontender. Unable to assess foot and ankle motion or sensation. Circulatory status is intact. - Labs CBC & Chem 7: 03/22/21 10:01 03/22/21 10:01 Assessment and Plan (1) Status post hip hemiarthroplasty Current Visit: Yes Status: Acute Code(s): Z96.649 - PRESENCE OF UNSPECIFIED ARTIFICIAL HIP JOINT SNOMED Code(s): 757164216 (2) Fall Current Visit: Yes Status: Acute Code(s): W19.XXXA - UNSPECIFIED FALL, INITIAL ENCOUNTER SNOMED Code(s): 3912898 (3) Subcapital fracture of left femur Current Visit: Yes Status: Acute Code(s): S72.012A - UNSP INTRACAPSULAR FRACTURE OF LEFT FEMUR, INIT FOR CLOS FX SNOMED Code(s): 956422463 Plan: 1. Continue pain control. 2. Anticoagulation with Xarelto. 3. Start physical therapy and turning the patient every 2 hours. 4. Maintain posterior hip precautions and abductor pillow. 5. Anticipate discharge back to hospice vs skilled rehab upon discharge.
[2021-03-22 11:07] LABS: Basophils % (A) 0 %; Eosinophils % (A) 0 %; HCT 26.9 % (34.0-46.0); Lymphocytes # (A) 0.3 k/uL (1.0-4.8); Lymphocytes % (A) 5 %; MCH 28.1 pg (25.0-35.0); MCHC 31.8 g/dL (31.0-37.0); MCV 88.4 fL (80.0-100.0); Mean Platelet Volume 8.8; Monocytes # (A) 0.2 k/uL (0-1.0); Monocytes % (A) 3 %; Neutrophils # (A) 5.4 k/uL (1.3-7.7); Neutrophils % (A) 91 %; Platelet Count 136 k/uL (150-450); RBC 3.04 m/uL (3.80-5.40); RDW 13.8 % (11.5-15.5); WBC 5.9 k/uL (3.8-10.6)
[2021-03-22 11:23] LABS: HGB 8.6 gm/dL (11.4-16.0)
[2021-03-22 11:35] LABS: African American GFR (CKD) 75 (>60 ml/min/1.73 sqM); Anion Gap 3 mmol/L; Blood Urea Nitrogen 23 mg/dL (7-17); Calcium 8.5 mg/dL (8.4-10.2); Carbon Dioxide 35 mmol/L (22-30); Chloride 98 mmol/L (98-107); Glucose 157 mg/dL (74-99); Magnesium 1.5 mg/dL (1.6-2.3); Non-African American GFR(CKD) 65 (>60 ml/min/1.73 sqM); Potassium 4.4 mmol/L (3.5-5.1); Sodium 136 mmol/L (137-145)
[2021-03-22] MEDS: ATORVASTATIN 10 MG TAB PO SCH (12:08)
[2021-03-22] MEDS: SERTRALINE 100 MG TAB PO SCH (12:08)
[2021-03-22] MEDS: RIVAROXABAN 10 MG TAB PO SCH (12:08)
[2021-03-22] MEDS: predniSONE 5 MG TAB PO SCH (12:12)
--- NOTE | 2021-03-22 12:52 | P.PN ---
Subjective Progress Note Date: 03/22/21 Patient is more hypoxic today requiring a nonrebreather. Patient herself denies significant shortness of breath. Her magnesium was noted to be low this morning. Patient was on hospice at home and nursing staff informed me that she is in the computer as a full code probably secondary to surgery. Patient should be a no code. Objective - Vital Signs Vital signs: Vital Signs Temp 98.9 F 03/22/21 08:41 Pulse 115 H 03/22/21 12:28 Resp 19 03/22/21 08:41 BP 134/62 03/22/21 08:41 Pulse Ox 95 03/22/21 12:28 Intake & Output 03/21/21 03/22/21 03/22/21 18:59 06:59 18:59 Intake Total 2350 Output Total 1000 675 Balance -1000 1675 Weight 65.771 kg Intake: IV 1350 Intake, IV Titration 1000 Amount Sodium Chloride 0.9% 1, 1000 000 ml @ 130 mls/hr IV . Q7H42M [facility] Rx#:[id number] Output: Urine 1000 375 Estimated Blood Loss 300 Other: Voiding Method External Catheter External Catheter Indwelling Catheter # Bowel Movements 0 - Exam General: The patient is awake and alert, in no distress Eye: there is normal conjunctiva bilaterally. Neck: The neck is supple, there is no JVD. Cardiovascular: Normal S1-S2, no S3-S4, no murmurs. Respiratory: Lungs clear to auscultation bilaterally Gastrointestinal: Abdomen is soft, nontender Musculoskeletal: There is no pedal edema. Neurological:. Speech is normal. 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 In the emergency department an x-ray was completed revealing an acute impacted subcapital fracture of left femur with approximate 2 cm of impaction. EKG showing normal sinus rhythm and 97 bpm with no noted T-wave or ST abnormalities. Patient is admitted under primary orthopedic surgery team and we have been consulted to provide medical management throughout hospitalization. Assessment and Plan of Care: Accidental Fall down stairs Left subcapital femur fracture -Status post left cemented hip hemiarthroplasty -Pain management, DVT prophylaxis, weightbearing, and PT/OT to be managed per orthopedic surgery team. End-stage COPD Chronic hypoxic respriatory failure secondary to end stage COPD home oxygen dependent on 4L at all times -Continue supplemental oxygen to maintain SpO2 equal to or greater than 90%. -Albuterol nebulizers as needed. Hypertension Monitor vital signs and continue daily medication regimen with lisinopril and metoprolol Hyperlipidemia Continue daily medication management with atorvastatin. Hypomagnesemia -Replacement order Discharge planning pending possibly to subacute rehab
--- NOTE | 2021-03-22 13:01 | XR ---
EXAMINATION TYPE: XR pelvis AP view DATE OF EXAM: 03/22/2021 CLINICAL HISTORY: Recent left hip surgery. TECHNIQUE: A single AP view of the pelvis is obtained. COMPARISON: Pelvic and left hip x-ray 3 days ago.. FINDINGS: Metallic hardware from left hip arthroplasty satisfactory in position. [id number]-km-[id number] axi al joint space loss with mild acetabular spurring right hip redemonstrated. Pubic symphysis is intact . Sacroiliac joints are preserved. No new fracture is evident. Osseous structures are demineralized. Partial visualization of Cornelius catheter noted. IMPRESSION: As above.
[2021-03-22] MEDS: MAGNESIUM SULFATE-D5W PMX 1 GM in DEXTROSE/WATER 1 100ML.BAG IVPB SCH ×2 (14:05→15:24)
[2021-03-22] MEDS: HYDROcodone/APAP 5-325MG 1 EACH TAB PO PRN (22:26)
[2021-03-23] MEDS: HYDROmorphone 1 MG/ML 1 ML SYRINGE IVP PRN (03:47)
[2021-03-23] MEDS: IPRATROPIUM-ALBUTEROL 3 ML NEB INHALATION SCH ×5 (04:35→20:10)
--- NOTE | 2021-03-23 08:35 | P.PN ---
Subjective Progress Note Date: 03/23/21 Principal diagnosis: Status post left hip hemiarthroplasty This is a 70 year-old female post left hip hemiarthroplasty. This is post-op day 2. The patient was evaluated at the bedside today. The patient is resting comfortably and she is more verbal today. Case management and family are trying to determine if she will return to hospice or go to skilled rehab upon discharge. Objective - Vital Signs Vital signs: Vital Signs Temp 97.4 F L 03/23/21 07:20 Pulse 94 03/23/21 07:50 Resp 16 03/23/21 07:20 BP 107/67 03/23/21 07:20 Pulse Ox 98 03/23/21 07:40 Intake & Output 03/22/21 03/23/21 03/23/21 18:59 06:59 18:59 Intake Total 1000 Output Total 400 Balance 1000 -400 Intake: Intake, IV Titration 1000 Amount Lactated Ringers 1,000 ml 1000 @ 20 mls/hr IV .Q24H [facility] Rx#:[id number] Output: Urine 400 Other: Voiding Method Indwelling Catheter Indwelling Catheter # Bowel Movements 0 - Exam The patient does not appear in acute distress. She opens her eyes to stimuli and responds with one word answers. Dressing is clean dry and intact. Abductor pillow in place. Calf is soft and nontender. Unable to assess foot and ankle motion or sensation. Circulatory status is intact. - Labs CBC & Chem 7: 03/22/21 10:01 03/22/21 10:01 Labs: Abnormal Lab Results - Last 24 Hours (Table) 03/22/21 03/22/21 Range/Units 10: 10:01 RBC 3.04 L (3.80-5.40) m/uL Hgb 8.6 L D (11.4-16.0) gm/dL Hct 26.9 L (34.0-46.0) % Plt Count 136 L (150-450) k/uL Lymphocytes # 0.3 L (1.0-4.8) k/uL Sodium 136 L (137-145) mmol/L Carbon Dioxide 35 H (22-30) mmol/L BUN 23 H (7-17) mg/dL Glucose 157 H (74-99) mg/dL Magnesium 1.5 L (1.6-2.3) mg/dL Assessment and Plan (1) Status post hip hemiarthroplasty Current Visit: Yes Status: Acute Code(s): Z96.649 - PRESENCE OF UNSPECIFIED ARTIFICIAL HIP JOINT SNOMED Code(s): 766634427 (2) Fall Current Visit: Yes Status: Acute Code(s): W19.XXXA - UNSPECIFIED FALL, INITIAL ENCOUNTER SNOMED Code(s): 2273828 (3) Subcapital fracture of left femur Current Visit: Yes Status: Acute Code(s): S72.012A - UNSP INTRACAPSULAR FRACTURE OF LEFT FEMUR, INIT FOR CLOS FX SNOMED Code(s): 903502252 Plan: 1. Continue pain control. 2. Anticoagulation with Xarelto. 3. Continue physical therapy and turning the patient every 2 hours. 4. Maintain posterior hip precautions and abductor pillow. 5. Anticipate discharge back to hospice vs skilled rehab upon discharge.
[2021-03-23] MEDS: lisinopriL 10 MG TAB PO SCH ×2 (09:00→19:45)
[2021-03-23] MEDS: ATORVASTATIN 10 MG TAB PO SCH (09:00)
[2021-03-23] MEDS: SERTRALINE 100 MG TAB PO SCH (09:01)
[2021-03-23] MEDS: predniSONE 5 MG TAB PO SCH (09:01)
[2021-03-23] MEDS: RIVAROXABAN 10 MG TAB PO SCH (09:01)
[2021-03-23] MEDS: METOPROLOL TARTRATE 25 MG TAB PO SCH ×2 (09:01→19:44)
[2021-03-23] MEDS: HYDROcodone/APAP 5-325MG 1 EACH TAB PO PRN (09:05)
--- NOTE | 2021-03-23 13:02 | P.PN ---
Subjective Patient was seen and evaluated by me today. She's been on 5 L of oxygen. No acute events overnight reported by nursing staff. Objective - Vital Signs Vital signs: Vital Signs Temp 97.4 F L 03/23/21 07:20 Pulse 90 03/23/21 11:25 Resp 16 03/23/21 07:20 BP 107/67 03/23/21 07:20 Pulse Ox 98 03/23/21 07:40 Intake & Output 03/22/21 03/23/21 03/23/21 18:59 06:59 18:59 Intake Total 1000 Output Total 400 Balance 1000 -400 Intake: Intake, IV Titration 1000 Amount Lactated Ringers 1,000 ml 1000 @ 20 mls/hr IV .Q24H [facility] Rx#:[id number] Output: Urine 400 Other: Voiding Method Indwelling Catheter Indwelling Catheter Indwelling Catheter # Bowel Movements 0 - Exam General: The patient is awake and alert, in no distress Eye: there is normal conjunctiva bilaterally. Neck: The neck is supple, there is no JVD. Cardiovascular: Normal S1-S2, no S3-S4, no murmurs. Respiratory: Lungs clear to auscultation bilaterally Gastrointestinal: Abdomen is soft, nontender Musculoskeletal: There is no pedal edema. Neurological:. Speech is normal. 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 In the emergency department an x-ray was completed revealing an acute impacted subcapital fracture of left femur with approximate 2 cm of impaction. EKG showing normal sinus rhythm and 97 bpm with no noted T-wave or ST abnormalities. Patient is admitted under primary orthopedic surgery team and we have been consulted to provide medical management throughout hospitalization. Assessment and Plan of Care: Accidental Fall down stairs Left subcapital femur fracture -Status post left cemented hip hemiarthroplasty -Pain management, DVT prophylaxis, weightbearing, and PT/OT to be managed per orthopedic surgery team. End-stage COPD Chronic hypoxic respriatory failure secondary to end stage COPD home oxygen dependent on 4L at all times -Continue supplemental oxygen to maintain SpO2 equal to or greater than 90%. -Albuterol nebulizers as needed. -I would obtain follow-up chest x-ray Hypertension Monitor vital signs and continue daily medication regimen with lisinopril and metoprolol Hyperlipidemia Continue daily medication management with atorvastatin. Hypomagnesemia -Replacement order Discharge planning pending possibly to subacute rehab
[2021-03-23] MEDS: SENNOSIDES-DOCUSATE SODIUM 1 EACH TAB PO SCH (19:45)
[2021-03-24] MEDS: IPRATROPIUM-ALBUTEROL 3 ML NEB INHALATION SCH ×5 (00:03→16:56)
[2021-03-24 03:10] VITALS: RESP 16
--- NOTE | 2021-03-24 08:27 | P.DS ---
Providers Date of admission: 03/19/21 23:47 Expected date of discharge: 03/24/21 Attending physician: Judith Cabrera DO Consults: 03/19/21 22:33 Consult Physician Urgent Consulting Provider: Beatriz Jama Consult Reason/Comments: femur fracture Do you want consulting provider notified?: Yes Primary care physician: Stated None - Discharge Diagnosis(es) (1) Status post hip hemiarthroplasty Current Visit: Yes Status: Acute (2) Fall Current Visit: Yes Status: Acute (3) Subcapital fracture of left femur Current Visit: Yes Status: Acute Hospital Course: This is a 70 year old female who presented to the hospital post fall at home and sustained a left hip fracture. The patient was cleared by medicine for surgery. The patient underwent a left hip hemiarthroplasty on 03/21/[address] Judith Cabrera. The procedure was performed without complication or sequelae. The patient is doing well postoperatively. Labs and vital signs are stable on the day of discharge. On the day of discharge the patient's hip incision is healing well. There is minimal erythema. There is no drainage noted at this time. There is minimal soft tissue swelling to the hip and thigh. The patient has full foot and ankle motion without difficulty or pain. Neurovascular status to the left lower extremity is intact. The patient is discharged to skilled rehab today. See medication reconciliation for accurate list of discharge medications. Pertinent Studies: Laboratory Tests 03/22/21 03/22/21 10:01 10:01 WBC 5.9 RBC 3.04 L Hgb 8.6 L D Hct 26.9 L Plt Count 136 L Lymphocytes # 0.3 L Sodium 136 L BUN 23 H Glucose 157 H Patient Condition at Discharge: Stable Plan - Discharge Summary Discharge Rx Participant: No New Discharge Prescriptions: New HYDROcodone/APAP 5-325MG [[place] 5] 1 - 2 each PO Q4-6H PRN #30 tab PRN Reason: Pain Sennosides-Docusate Sodium [Senokot-S] 1 tab PO BID #30 tablet Rivaroxaban [Xarelto] 10 mg PO DAILY #30 tab No Action Lisinopril [Zestril] 10 mg PO BID Sertraline [Zoloft] 100 mg PO DAILY Aspirin EC [Ecotrin Low Dose] 81 mg PO DAILY #1 tablet. Oxybutynin Chloride [Ditropan] 5 mg PO BID LORazepam [Ativan] 0.5 mg PO Q6H PRN PRN Reason: Anxiety Lovastatin [Mevacor] 40 mg PO DAILY Metoprolol Tartrate [Lopressor] 25 mg PO BID Morphine Sulfate [Morphine Sulfate Oral Soln Conc (20 MG/ML)] 5 mg PO Q4H PRN PRN Reason: Pain predniSONE 5 mg PO DAILY Albuterol Inhaler [Ventolin Hfa Inhaler] 2 puff INHALATION RT-Q4H PRN PRN Reason: Shortness Of Breath Celecoxib [CeleBREX] 100 mg PO DAILY Discharge Medication List Lisinopril [Zestril] 10 mg PO BID 11/13/13 [History] Sertraline [Zoloft] 100 mg PO DAILY 11/13/13 [History] Aspirin EC [Ecotrin Low Dose] 81 mg PO DAILY #1 tablet. 11/17/13 [Rx] Oxybutynin Chloride [Ditropan] 5 mg PO BID 05/26/16 [History] Albuterol Inhaler [Ventolin Hfa Inhaler] 2 puff INHALATION RT-Q4H PRN 03/19/21 [History] Celecoxib [CeleBREX] 100 mg PO DAILY 03/19/21 [History] LORazepam [Ativan] 0.5 mg PO Q6H PRN 03/19/21 [History] Lovastatin [Mevacor] 40 mg PO DAILY 03/19/21 [History] Metoprolol Tartrate [Lopressor] 25 mg PO BID 03/19/21 [History] Morphine Sulfate [Morphine Sulfate Oral Soln Conc (20 MG/ML)] 5 mg PO Q4H PRN 03/19/21 [History] predniSONE 5 mg PO DAILY 03/19/21 [History] HYDROcodone/APAP 5-325MG [[place] 5] 1 - 2 each PO Q4-6H PRN #30 tab 03/24/21 [Rx] Rivaroxaban [Xarelto] 10 mg PO DAILY #30 tab 03/24/21 [Rx] Sennosides-Docusate Sodium [Senokot-S] 1 tab PO BID #30 tablet 03/24/21 [Rx] Follow up Appointment(s)/Referral(s): Judith Cabrera DO [Doctor of Osteopathic Medicine] - 2 Weeks None,Stated [Primary Care Provider] - 1-2 days Activity/Diet/Wound Care/Special Instructions: Weightbearing as tolerated with walker Keep Optifoam dressing in place for 10 days unless saturated Xarelto 10 mg daily for 1 month May shower over dressing Follow up with Dr. Judith Cabrera in 2 weeks. Call [facility] with questions or concerns, Discharge Disposition: TRANSFER TO SNF/ECF
[2021-03-24] MEDS: SERTRALINE 100 MG TAB PO SCH (09:09)
[2021-03-24] MEDS: RIVAROXABAN 10 MG TAB PO SCH (09:09)
[2021-03-24] MEDS: lisinopriL 10 MG TAB PO SCH (09:09)
[2021-03-24] MEDS: METOPROLOL TARTRATE 25 MG TAB PO SCH (09:09)
[2021-03-24] MEDS: ATORVASTATIN 10 MG TAB PO SCH (09:10)
[2021-03-24] MEDS: predniSONE 5 MG TAB PO SCH (09:10)
[2021-03-24 10:03] LABS: Basophils # (A) 0.02 X 10*3/uL (0.00-0.10); Basophils % (A) 0.3 %; Eosinophils # (A) 0.13 X 10*3/uL (0.04-0.35); Eosinophils % (A) 2.1 %; HCT 23.5 % (37.2-46.3); HGB 7.3 g/dL (12.0-15.0); Lymphocytes # (A) 0.43 X 10*3/uL (0.90-5.00); Lymphocytes % (A) 6.9 %; MCH 27.9 pg (27.0-32.0); MCHC 31.1 g/dL (32.0-37.0); MCV 89.7 fL (80.0-97.0); Mean Platelet Volume 11.6 fL (9.5-12.2); Monocytes # (A) 0.33 X 10*3/uL (0.20-1.00); Monocytes % (A) 5.3 %; Neutrophils # (A) 5.28 X 10*3/uL (1.80-7.70); Neutrophils % (A) 84.6 %; Platelet Count 159 X 10*3/uL (140-440); RBC 2.62 X 10*6/uL (4.10-5.20); RDW 13.2 % (11.5-14.5); WBC 6.24 X 10*3/uL (4.50-10.00)
--- NOTE | 2021-03-24 14:17 | P.PN ---
Subjective Patient was seen and evaluated by me today. She's been on 4 L of oxygen. No acute events overnight reported by nursing staff. Objective - Vital Signs Vital signs: Vital Signs Temp 100.0 F H 03/24/21 07:00 Pulse 101 H 03/24/21 07:52 Resp 16 03/24/21 07:00 BP 185/81 03/24/21 07:00 Pulse Ox 94 L 03/24/21 07:44 Intake & Output 03/23/21 03/24/21 03/24/21 18:59 06:59 18:59 Output Total 400 400 Balance -400 -400 Output: Urine 400 400 Other: Voiding Method Indwelling Catheter Indwelling Catheter Indwelling Catheter # Bowel Movements 0 - Exam General: The patient is awake and alert, in no distress Eye: there is normal conjunctiva bilaterally. Neck: The neck is supple, there is no JVD. Cardiovascular: Normal S1-S2, no S3-S4, no murmurs. Respiratory: Lungs clear to auscultation bilaterally Gastrointestinal: Abdomen is soft, nontender Musculoskeletal: There is no pedal edema. Neurological:. Speech is normal. 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 In the emergency department an x-ray was completed revealing an acute impacted subcapital fracture of left femur with approximate 2 cm of impaction. EKG showing normal sinus rhythm and 97 bpm with no noted T-wave or ST abnormalities. Patient is admitted under primary orthopedic surgery team and we have been consulted to provide medical management throughout hospitalization. Assessment and Plan of Care: Accidental Fall down stairs Left subcapital femur fracture -Status post left cemented hip hemiarthroplasty -Pain management, DVT prophylaxis, weightbearing, and PT/OT to be managed per orthopedic surgery team. End-stage COPD Chronic hypoxic respriatory failure secondary to end stage COPD home oxygen dependent on 4L at all times -Continue supplemental oxygen to maintain SpO2 equal to or greater than 90%. -Albuterol nebulizers as needed. Hypertension Monitor vital signs and continue daily medication regimen with lisinopril and metoprolol Hyperlipidemia Continue daily medication management with atorvastatin. Hypomagnesemia -Replacement order Discharge planning to [facility] today
[2021-03-24 14:34] VITALS: BP 179/98; TEMP 98.3
[2021-03-24 17:08] VITALS: PULSE 98
== END 2021-03-24 18:27 | DRG 522 ==
LOC: EC 20:55 → 5NMEDONC 23:47 → 4SSUR 03-20 14:07
PROVIDERS: ADMIT Orthopaedic Surgery Hand Surgery; ATTEND Orthopaedic Surgery Hand Surgery
PROC: 0SRS039 Replacement of Left Hip Joint, Femoral Surface with Ceramic Synthetic Substitute, Cemented, Open Approach (ICD-10-PCS; principal; 2021-03-21 12:00)
DX: S72.012A Unspecified intracapsular fracture of left femur, initial encounter for closed fracture (principal); J96.11 Chronic respiratory failure with hypoxia; W10.9XXA Fall (on) (from) unspecified stairs and steps, initial encounter; Z20.822 Contact with and (suspected) exposure to COVID-19; Z51.5 Encounter for palliative care; Z96.649 Presence of unspecified artificial hip joint; Z96.653 Presence of artificial knee joint, bilateral; M19.90 Unspecified osteoarthritis, unspecified site; K21.9 Gastro-esophageal reflux disease without esophagitis; R56.9 Unspecified convulsions; I11.0 Hypertensive heart disease with heart failure; G40.909 Epilepsy, unspecified, not intractable, without status epilepticus; F41.9 Anxiety disorder, unspecified; I50.9 Heart failure, unspecified; J44.9 Chronic obstructive pulmonary disease, unspecified; E83.42 Hypomagnesemia; D64.9 Anemia, unspecified; E78.5 Hyperlipidemia, unspecified; F03.90 Unspecified dementia, unspecified severity, without behavioral disturbance, psychotic disturbance, mood disturbance, and anxiety; F17.200 Nicotine dependence, unspecified, uncomplicated; F32.9 Major depressive disorder, single episode, unspecified; Y92.009 Unspecified place in unspecified non-institutional (private) residence as the place of occurrence of the external cause; R09.02 Hypoxemia; Z74.01 Bed confinement status; Z99.81 Dependence on supplemental oxygen; Z79.1 Long term (current) use of non-steroidal anti-inflammatories (NSAID); Z79.82 Long term (current) use of aspirin; Z79.899 Other long term (current) drug therapy; Z86.711 Personal history of pulmonary embolism; Z90.710 Acquired absence of both cervix and uterus
CPT/HCPCS: 36415; 71045; 72100; 72170; 73501; 73502; 80048; 80053; 81001; 83735; 85025; 85610; 85730; 87635; 88305; 88311; 93005; 94640; 94760; 96361; 96374; 99285